=== PATIENT | male | born 1955 | race Caucasian/White ===

== ENCOUNTER 2016-05-16 14:56 | Inpatient (IN) | payer MEDICARE, OTHER ==
--- NOTE | ~2016-05-16 | DS ---
Discharge Summary [facility] [address] [place]. [address] NAME: GABRIELLE PARISI JR : 53 STATUS : DIS IN PAT#: [id number] AGE: 60 ADM/REG DATE : 05/16/16 MR#: [id number] REPORT SERV DATE: 05/19/16 DICTATED BY: FRANCES SHULTZ DATE: 05/19/16 REPORT STATUS : Draft TRANSCRIBED BY: MODAugie DATE: 05/19/16 ADMISSION DATE: 05/16/2016 DISCHARGE DATE: 05/19/2016 INDICATION FOR ADMISSION: Mild confusion, atrial fibrillation with rapid ventricular response. DISCHARGE DIAGNOSES: 1. Altered mental status, on dialysis, no evidence of infection, likely hypoxemia improved after dialysis. 2. Atrial fibrillation with rapid ventricular response, converted to normal sinus rhythm with additional Cardizem. 3. End-stage renal disease, dialyzing Thursday, Thursday, and Thursday at [facility] by left forearm AV fistula. 4. Pulmonary hypertension. 5. History of atrial fibrillation. 6. Hypertension. 7. Obstructive sleep apnea. 8. Hyperkalemia. 9. Chronic debility. 10.Torticollis. 11.Congestive heart failure. 12.Seizure disorder. 13.Moderate diastolic dysfunction. 14.Stable coronary artery disease with mild nonobstructive CAD per angiogram 2008. HOSPITAL COURSE: Mr. Parisi is a 60-year-old male, who was transferred prior to completion of dialysis due to lethargy. He was evaluated in the emergency room and no obvious source was found for his mental status changes. Blood gas was not performed. Blood cultures were obtained and he was dosed with Rocephin x1. The cultures were negative. He was noted to have a potassium of 6 and was resumed on dialysis on 05/17/2016. He was at his baseline when repeat dialysis was performed. His dry weight was challenged. He developed atrial fibrillation with rapid ventricular response. He denied any chest pain. The patient was seen by Cardiology and was dosed with Cardizem and he converted to normal sinus rhythm. He remained at his baseline for the remainder of the hospitalization. Cardiology did not feel he was a candidate for anticoagulation due to history of subdural hematoma in the past. He was noted to have an ejection fraction of 60% on echocardiogram. He had previously had nonobstructive coronary artery disease by cardiac cath in 2008. There was no troponin elevation, therefore no repeat catheterization was performed. He was felt stable for release on 05/19/2016. DISCHARGE MEDICATIONS: Allopurinol 100 mg at bedtime; Norvasc 5 mg p.o. twice daily; amiodarone 100 mg q.a.m.; diltiazem extended release 120 mg p.o. q.a.m.; Keppra 500 mg p.o. twice daily; multivitamin 1 p.o. daily; Trileptal 150 mg at bedtime; Nexium 40 mg at bedtime; Dilantin 200 mg at bedtime; Mirapex 0.75 mg p.o. at bedtime; Zoloft 50 mg daily; Renvela 800 mg twice daily with meals; Tylenol 325 mg q.6h. p.r.n.; Zofran 4 mg p.o. twice Discharge Summary [address] [address] NAME: GABRIELLE PARISI : 53 STATUS : DIS IN PAT#: [id number] AGE: 60 ADM/REG DATE : 05/16/16 MR#: [id number] REPORT SERV DATE: 05/19/16 DICTATED BY: FRANCES SHULTZ DATE: 05/19/16 REPORT STATUS : Draft TRANSCRIBED BY: LELO DATE: 05/19/16 daily; Sensipar 30 mg p.o. on Thursday, Thursday, Thursday, Thursday, and Thursday; SPS suspension 15 g p.o. q. Thursday; and PhosLo 667 mg p.o. twice daily. ACTIVITY: Activity will be per care home/assisted living. DIET: Diet will be 1500 cc renal diet. FOLLOWUP: Will be on dialysis as scheduled at [facility]. CHANCE/BELKISL Frances Shultz M.D. / [id number] CC: Thelma Miller M.D.
--- NOTE | ~2016-05-16 | CN ---
Consultation Report [facility] [address] [place]. [address] NAME: GABRIELLE VOGT JR : 53 STATUS : ADM IN PAT#: [id number] AGE: 60 ADM/REG DATE : 05/16/16 MR#: [id number] REPORT SERV DATE: 05/17/16 DICTATED BY: DRE FERGUSON DATE: 05/17/16 REPORT STATUS : Draft TRANSCRIBED BY: LELO DATE: 05/17/16 CARDIOLOGY CONSULT DATE OF CONSULTATION: REFERRING PHYSICIAN: Alex physician assistant professor surgical technology on Nephrology service. REFERRING REASON: Atrial fibrillation with RVR. HISTORY OF PRESENT ILLNESS: This is a pleasant 60-year-old white gentleman with complex past medical history, who has been admitted yesterday for mental status changes during hemodialysis. He is well known to Dr. Yvon Jarquin from [facility]. The patient has a history of paroxysmal atrial fibrillation and history of atrial flutter in the past. He is being well managed with low dose of p.o. amiodarone and Cardizem. He was not felt to be a good candidate for anticoagulation by Dr. Jarquin due to the recurrent subdural hematoma both chronic and subacute, the most recent one has been documented in the fall of 2016. The patient has poor mobility, occasionally walks with a walker. He resides in long term. He denied any recent chest pain or palpitations. He had some confusion during hemodialysis and was admitted last night. He was initiated normal sinus rhythm but later he went into atrial fibrillation with RVR up to 130 beats per minute. He was started on Cardizem drip and went back to normal sinus rhythm. He is now in sinus rhythm and feels well. Of note, he is also on Keppra and Dilantin for some torticollis and possible seizure disorder. He has some mild nonobstructive CAD with preserved systolic function with EF 60%. The rest of the review of systems is negative. He is a poor historian however. PAST MEDICAL HISTORY: 1. End-stage renal disease, on hemodialysis. 2. Seizure disorder and torticollis on Keppra and Dilantin. 3. Paroxysmal atrial fibrillation with history of atrial flutter, currently normal sinus rhythm. 4. No anticoagulation due to recurrent subdural hematoma per Dr. Jarquin. 5. Hypertension. 6. Obstructive sleep apnea. 7. Mild to moderate pulmonary hypertension. 8. Preserved systolic function with EF 60% in 2013 and 2014 with some moderate diastolic dysfunction and mild to moderate pulmonary hypertension with mild left atrial enlargement. 9. Stable coronary artery disease with mild nonobstructive CAD per arteriogram in 2008. SOCIAL HISTORY: The patient is . He resides in assisted living. He walks with a walker. He has a remote history of smoking. He denies drinking alcohol or using street drugs. Consultation Report [address] [place]. [address] NAME: GABRIELLE VOGT JR : 53 STATUS : ADM [facility]#: [id number] AGE: 60 ADM/REG DATE : 05/16/16 MR#: [id number] REPORT SERV DATE: 05/17/16 DICTATED BY: DRE FERGUSON DATE: 05/17/16 REPORT STATUS : Draft TRANSCRIBED BY: LELO DATE: 05/17/16 FAMILY HISTORY: Negative for sudden cardiac or premature coronary artery disease in the family. HOME MEDICATIONS: Keppra 500 mg twice a day; Prilosec 40 mg once a day; Zofran p.r.n.; Trileptal 150 mg at bedtime; Renvela 800 mg before meals; allopurinol 100 mg once a day; amiodarone 100 mg once a day; Norvasc 5 mg twice a day; Sensipar 30 mg every other day; and Cardizem CD 120 mg once a day. PHYSICAL EXAMINATION: GENERAL: Elderly chronically ill-looking gentleman, in no acute distress. Able to lie flat. HEENT: Pupils reactive to light and accommodation. Moist mucosa membrane. NECK: No JVD. Normal carotid upstroke. No carotid bruits. VITAL SIGNS: Blood pressure 149/92, heart rate 56, regular. LUNGS: Decreased breath sounds bibasilarly, but no crackles. SKIN: There is some chronic discoloration of the left upper extremity which is dark, brown with some possible old bruising and hyperpigmentation over dialysis fistula. There is also some hyperpigmentation of both lower extremities with decreased pedal pulses bilaterally. COR: Normal S1, S2. No S3 or S4. No significant rub or murmurs. ABDOMEN: Soft, nontender, nondistended. EXTREMITIES: No edema. MUSCULOSKELETAL: No kyphosis. NEUROLOGIC/PSYCHIATRIC: Alert and oriented. Nonfocal. DATA: CBC remarkable for hemoglobin 11.5 and thrombocytopenia initially 79,000 improving to 85,000. Electrolytes initially potassium 6 and creatinine 8.5 with BUN 19 now after dialysis improved to 4.8 creatinine. Chest x-ray some venous congestion and borderline cardiac silhouette, this is prior dialysis. Electrocardiogram initially in normal sinus rhythm at 59 beats per minute. No acute ST-T changes. Later he had atrial fibrillation with rapid ventricular response up to 136 beats per minute, now he is back in normal sinus rhythm. ASSESSMENT AND PLAN: 1. Paroxysmal atrial fibrillation, currently in normal sinus rhythm. 2. Mental status changes during hemodialysis of unclear etiology. 3. History of documented subdural hematoma, no anticoagulation. 4. End-stage renal disease, on hemodialysis. Under this picture, the patient is now hemodynamically stable. He converted back to normal sinus rhythm. He was not felt to be a good candidate for anticoagulation for the above reasons. He is not oriented to person and place. I would definitely restart his home dose of Cardizem and continue low dose of amiodarone. There are no significant pauses. There are no signs of fluid overload on physical exam. Thank you very much for the consult. Consultation Report [address] [place]. [address] NAME: GABRIELLE VOGT JR : 53 STATUS : ADM [facility]#: [id number] AGE: 60 ADM/REG DATE : 05/16/16 MR#: [id number] REPORT SERV DATE: 05/17/16 DICTATED BY: DRE FERGUSON DATE: 05/17/16 REPORT STATUS : Draft TRANSCRIBED BY: LELO DATE: 05/17/16 TITA/LELO Dre Ferguson M.D. / [id number] CC: Wilman Garcia M.D.
--- NOTE | ~2016-05-16 | CN ---
Consultation Report [facility] [address] [place]. [address] NAME: GABRIELLE VOGT JR : 53 STATUS : ADM [facility]#: [id number] AGE: 60 ADM/REG DATE : 05/16/16 MR#: [id number] REPORT SERV DATE: 05/17/16 DICTATED BY: MARK VELASCO DATE: 05/16/16 REPORT STATUS : Draft TRANSCRIBED BY: LELO DATE: 05/16/16 NEPHROLOGY CONSULT NOTE DATE OF CONSULTATION: REASON FOR ADMISSION: Confusion. HISTORY OF PRESENT ILLNESS: The patient is a 60-year-old gentleman who reportedly went to dialysis, asked to be taken off early, was found to be somewhat lethargic, did not finish his dialysis treatment. He was subsequently transferred to [facility] Emergency Department. No obvious source was found. The patient was given some Rocephin in the ER. His potassium was found to be 6. The patient was sent to hemodialysis and subsequently being admitted for further evaluation and care. PAST MEDICAL HISTORY: Significant for end-stage renal disease with AV fistula, hypertension, obstructive sleep apnea, tobacco use, pulmonary hypertension, atrial fibrillation on amiodarone, but no anticoagulation, torticollis, and debilitated. He lives in an assisted facility. FAMILY HISTORY: No known renal disease. SOCIAL HISTORY: Positive for tobacco use, but no reported alcohol or drug use and abuse. MEDICATION: List consists of Tylenol, allopurinol, amiodarone, amlodipine, PhosLo, Sensipar, diltiazem, Keppra, omeprazole, Zofran, sevelamer, Dilantin, was on a dialysis flow sheet medication list. REVIEW OF SYSTEMS: Difficult to obtain due the patient's current situation. PHYSICAL EXAMINATION: GENERAL: On examination, he was seen in his hospital room. He was arousable, but somewhat lethargic. Presently answer questions very well, is a poor historian. I have seen him before and he does seem to be a little less responsive than his baseline. HEENT: Head is atraumatic, normocephalic. He is a well-developed, elderly gentleman. CARDIOVASCULAR SYSTEM: Regular rate and rhythm. RESPIRATORY SYSTEM: Clear to auscultation. Nonlabored. ABDOMEN: Soft, somewhat protuberant. EXTREMITIES: No clubbing or cyanosis. Does have 1+ peripheral edema. PSYCH: As described above. LABORATORY DATA: Sodium 142, potassium 6, chloride 102, CO2 of 26, BUN 90, creatinine 8.5, glucose 81. Lactic acid 0.9. Consultation Report [facility] [id number] [place]. [address] NAME: GABRIELLE VOGT JR : 53 STATUS : ADM IN PAT#: [id number] AGE: 60 ADM/REG DATE : 05/16/16 MR#: [id number] REPORT SERV DATE: 05/17/16 DICTATED BY: MARK VELASCO DATE: 05/16/16 REPORT STATUS : Draft TRANSCRIBED BY: LELO DATE: 05/16/16 IMPRESSION AND PLAN: This is a gentleman with mild confusion with negative workup from the ER. Given Rocephin. Blood cultures are pending. We will resume home medications. History of Dilantin is listed on his medication sheet from the dialysis unit. We will check a Dilantin level. We will try and resume his other home medications as tolerated. We will make further recommendation as needed. YOGESH/LELO Mark Velasco M.D. / [id number] CC: Mark Velasco M.D.
[2016-05-16 14:19] LABS: BASOPHILS 0.2 %; BASOPHILS ABSOLUTE 0.01 10/3/uL (0.0-0.16); EOSINOPHILS 2.7 %; EOSINOPHILS ABSOLUTE 0.16 10/3/uL (0.0-0.53); HEMATOCRIT 34.6 % (40.0-51.0); HEMOGLOBIN 11.5 g/dL (13.6-17.8); IMMATURE GRANULOCYTES 0.3 %; IMMATURE GRANULOCYTES ABSOLUTE 0.02 10/3/uL (0.0-0.11); LYMPHOCYTES ABSOLUTE 1.31 10/3/uL (0.67-4.30); MEAN CORPUS HGB CONC 33.2 g/dL (32.0-36.0); MEAN CORPUSCULAR HEMOGLOB 33.6 pg (26.0-34.0); MEAN CORPUSCULAR VOLUME 101.2 fL (80-100); MEAN PLATELET VOLUME 10.3 fL (9.2-13.0); MONOCYTES 8.4 %; NEUTROPHILS 66.4 %; NEUTROPHILS ABSOLUTE 3.95 10/3/uL (2.02-8.40); PLATELET COUNT 79 10/3/uL (150-400); RBC DISTRIBUTION WIDTH 13.4 % (12.0-16.0); RED CELL COUNT 3.42 10/6/uL (4.7-6.1)
[2016-05-16 14:20] LABS: MANUAL DIFF NO %
[2016-05-16 14:21] LABS: LACTATE 0.9 MMOL/L (0.3-2.4)
[2016-05-16 14:33] LABS: INTERNATIONAL NORMAL RATI 1.2 UNITS (-); PARTIAL THROMBO TIME 31.2 SEC (22.5-37.2)
[2016-05-16 14:34] LABS: PROTIME (NOT ORD) 14.7 SEC (12.0-14.5)
[2016-05-16 14:35] LABS: A/G RATIO 1.2 (0.7-1.9); ALBUMIN 3.5 G/DL (3.5-5.0); CALCIUM, SERUM 8.3 MG/DL (8.5-10.4); CHLORIDE, SERUM 102 MMOL/L (96-112); CO2 (CARBON DIOXIDE) 26 MMOL/L (24-34); GLOBULIN 2.9 G/DL (2.5-4.1); GLUCOSE, SERUM 81 MG/DL (60-99); SGOT(AST) 35 U/L (5-40); SGPT(ALT) 25 U/L (5-65); SODIUM, SERUM 142 MMOL/L (135-148); TOTAL BILIRUBIN 0.5 MG/DL (0-1.2); TOTAL PROTEIN 6.4 G/DL (6.0-8.5)
[2016-05-16 14:36] LABS: ALKALINE PHOSPHATASE 177 U/L (45-117); BUN (BLOOD UREA NITROGEN) 90 MG/DL (6-23); CREATININE 8.54 MG/DL (0.70-1.30); GFR AFRICAN AMERICAN 7 ML/MIN (>=60); GFR NON AFRICAN AMERICAN 6 ML/MIN (>=60)
[2016-05-16 14:37] LABS: PLATELET ESTIMATE DEC (ADEQUATE); RBC MORPHOLOGY NORM (NORMAL)
[~2016-05-16 14:56] MED LIST: ADVIL PO; AMB5 PO; APRES25 PO; AVAP150 PO; CARD120 PO; CARTIA XT180 MG/24 PO; CONSTULOSE PO; CORDARONE PO; COREG12 PO; COREG25 PO; DSS PO; IBU400 PO; JANTOVEN3 MG PO; JANTOVEN5 MG; JANTOVEN6 MG PO; KAYEXUD PO; LOM PO; MEDROLPAK4 PO; MIRALAXPKT PO; MIRAPEX0.75 MG PO; MIRAPEX1.5 MG PO; MIRAPEX250 PO; MULTIVIT/MIN PO; NEPHRO PO; NEXIUM40 PO; NORV10 PO; NORV5 PO; PACERONE200 MG PO; PATANOL OPH; PHOSLO PO; PR25 PO; PRILOSEC40 MG PO; PROVENTSOL INH; RENAL SFTGLS1 MG PO; RENVELA800 MG PO; SENSIPAR30 M1 PO; SENSIPAR60 MG OR; SEVE800T PO; SPS PO; SPS SUSPENSION PO; TRILEP150 PO; TRIPHROCAPS PO; VITC500 PO; Z100 PO; Z300 PO; ZESTRIL30 MG PO; ZOFRAN4 PO
[2016-05-16 15:11] LABS: PROCALCITONIN 0.35 ng/mL (<0.5)
[2016-05-16 21:16] LABS: BASOPHILS 0 %; EOSINOPHILS 3.9 %; EOSINOPHILS ABSOLUTE 0.19 10/3/uL (0.0-0.53); HEMATOCRIT 36.2 % (40.0-51.0); HEMOGLOBIN 12.1 g/dL (13.6-17.8); IMMATURE GRANULOCYTES 0.2 %; IMMATURE GRANULOCYTES ABSOLUTE 0.01 10/3/uL (0.0-0.11); LYMPHOCYTES 16.7 %; LYMPHOCYTES ABSOLUTE 0.82 10/3/uL (0.67-4.30); MANUAL DIFF NO %; MEAN CORPUS HGB CONC 33.4 g/dL (32.0-36.0); MEAN CORPUSCULAR HEMOGLOB 33.3 pg (26.0-34.0); MEAN CORPUSCULAR VOLUME 99.7 fL (80-100); MEAN PLATELET VOLUME 10.3 fL (9.2-13.0); MONOCYTES 12.2 %; NEUTROPHILS ABSOLUTE 3.29 10/3/uL (2.02-8.40); PLATELET COUNT 83 10/3/uL (150-400); RBC DISTRIBUTION WIDTH 13.2 % (12.0-16.0); RED CELL COUNT 3.63 10/6/uL (4.7-6.1); WHITE BLOOD CELLS 4.9 10/3/uL (4.5-10.5)
[2016-05-16 21:25] LABS: ALBUMIN 3.3 G/DL (3.5-5.0); CALCIUM, SERUM 8.5 MG/DL (8.5-10.4); CHLORIDE, SERUM 108 MMOL/L (96-112); CO2 (CARBON DIOXIDE) 29 MMOL/L (24-34); GLOBULIN 3.4 G/DL (2.5-4.1); GLUCOSE, SERUM 73 MG/DL (60-99); SGOT(AST) 35 U/L (5-40); SGPT(ALT) 27 U/L (5-65); SODIUM, SERUM 145 MMOL/L (135-148); TOTAL BILIRUBIN 0.6 MG/DL (0-1.2); TOTAL PROTEIN 6.7 G/DL (6.0-8.5)
[2016-05-16 21:26] LABS: ALKALINE PHOSPHATASE 191 U/L (45-117); BUN (BLOOD UREA NITROGEN) 38 MG/DL (6-23); CREATININE 4.83 MG/DL (0.70-1.30); GFR AFRICAN AMERICAN 14 ML/MIN (>=60); GFR NON AFRICAN AMERICAN 12 ML/MIN (>=60); POTASSIUM, SERUM 4.3 MMOL/L (3.5-5.3)
[2016-05-17 06:06] LABS: BASOPHILS 0.2 %; BASOPHILS ABSOLUTE 0.02 10/3/uL (0.0-0.16); EOSINOPHILS 2.6 %; EOSINOPHILS ABSOLUTE 0.21 10/3/uL (0.0-0.53); HEMATOCRIT 37.3 % (40.0-51.0); HEMOGLOBIN 12.4 g/dL (13.6-17.8); IMMATURE GRANULOCYTES 0.1 %; IMMATURE GRANULOCYTES ABSOLUTE 0.01 10/3/uL (0.0-0.11); LYMPHOCYTES 18.1 %; LYMPHOCYTES ABSOLUTE 1.49 10/3/uL (0.67-4.30); MEAN CORPUS HGB CONC 33.2 g/dL (32.0-36.0); MEAN CORPUSCULAR HEMOGLOB 33.5 pg (26.0-34.0); MEAN CORPUSCULAR VOLUME 100.8 fL (80-100); MEAN PLATELET VOLUME 10.3 fL (9.2-13.0); MONOCYTES ABSOLUTE 0.66 10/3/uL (0.21-1.20); NEUTROPHILS ABSOLUTE 5.84 10/3/uL (2.02-8.40); PLATELET COUNT 102 10/3/uL (150-400); RBC DISTRIBUTION WIDTH 13.2 % (12.0-16.0)
[2016-05-17 06:11] LABS: MANUAL DIFF NO %; WHITE BLOOD CELLS 8.2 10/3/uL (4.5-10.5)
[2016-05-17 06:20] LABS: ALBUMIN 3.3 G/DL (3.5-5.0); ALKALINE PHOSPHATASE 188 U/L (45-117); CALCIUM, SERUM 8.4 MG/DL (8.5-10.4); CHLORIDE, SERUM 106 MMOL/L (96-112); CO2 (CARBON DIOXIDE) 25 MMOL/L (24-34); GFR AFRICAN AMERICAN 12 ML/MIN (>=60); GFR NON AFRICAN AMERICAN 10 ML/MIN (>=60); GLOBULIN 3.3 G/DL (2.5-4.1); GLUCOSE, SERUM 68 MG/DL (60-99); PHOSPHORUS, SERUM 3.6 MG/DL (2.5-4.5); POTASSIUM, SERUM 4.7 MMOL/L (3.5-5.3); SGOT(AST) 32 U/L (5-40); SGPT(ALT) 26 U/L (5-65); SODIUM, SERUM 144 MMOL/L (135-148); TOTAL BILIRUBIN 0.7 MG/DL (0-1.2); TOTAL PROTEIN 6.6 G/DL (6.0-8.5)
[2016-05-17 06:21] LABS: BUN (BLOOD UREA NITROGEN) 43 MG/DL (6-23); CREATININE 5.64 MG/DL (0.70-1.30)
[2016-05-17 06:25] LABS: DILANTIN (PHENYTOIN) 2.2 MCG/ML (10.0-20.0)
[2016-05-17] MEDS ORDERED: NEXIUM40 PO (14:00)
[2016-05-18 05:29] LABS: BASOPHILS 0.2 %; BASOPHILS ABSOLUTE 0.01 10/3/uL (0.0-0.16); EOSINOPHILS 4.1 %; EOSINOPHILS ABSOLUTE 0.25 10/3/uL (0.0-0.53); HEMATOCRIT 34.1 % (40.0-51.0); HEMOGLOBIN 11.2 g/dL (13.6-17.8); IMMATURE GRANULOCYTES 0.2 %; IMMATURE GRANULOCYTES ABSOLUTE 0.01 10/3/uL (0.0-0.11); LYMPHOCYTES 25.5 %; LYMPHOCYTES ABSOLUTE 1.54 10/3/uL (0.67-4.30); MEAN CORPUS HGB CONC 32.8 g/dL (32.0-36.0); MEAN CORPUSCULAR HEMOGLOB 33.5 pg (26.0-34.0); MEAN CORPUSCULAR VOLUME 102.1 fL (80-100); MONOCYTES 14.8 %; MONOCYTES ABSOLUTE 0.89 10/3/uL (0.21-1.20); NEUTROPHILS 55.2 %; NEUTROPHILS ABSOLUTE 3.33 10/3/uL (2.02-8.40); PLATELET COUNT 82 10/3/uL (150-400); RBC DISTRIBUTION WIDTH 13.4 % (12.0-16.0); RED CELL COUNT 3.34 10/6/uL (4.7-6.1)
[2016-05-18 05:35] LABS: MANUAL DIFF NO %
[2016-05-18 05:41] LABS: BUN (BLOOD UREA NITROGEN) 45 MG/DL (6-23); CALCIUM, SERUM 8.4 MG/DL (8.5-10.4); CHLORIDE, SERUM 99 MMOL/L (96-112); CO2 (CARBON DIOXIDE) 29 MMOL/L (24-34); CREATININE 5.46 MG/DL (0.70-1.30); GFR AFRICAN AMERICAN 12 ML/MIN (>=60); GFR NON AFRICAN AMERICAN 10 ML/MIN (>=60); GLUCOSE, SERUM 82 MG/DL (60-99); PHOSPHORUS, SERUM 4.4 MG/DL (2.5-4.5); POTASSIUM, SERUM 4.3 MMOL/L (3.5-5.3); SODIUM, SERUM 140 MMOL/L (135-148)
[2016-05-19 06:23] LABS: BASOPHILS 0.1 %; BASOPHILS ABSOLUTE 0.01 10/3/uL (0.0-0.16); EOSINOPHILS ABSOLUTE 0.27 10/3/uL (0.0-0.53); HEMATOCRIT 33.4 % (40.0-51.0); HEMOGLOBIN 11.1 g/dL (13.6-17.8); IMMATURE GRANULOCYTES 0.1 %; IMMATURE GRANULOCYTES ABSOLUTE 0.01 10/3/uL (0.0-0.11); LYMPHOCYTES 21.2 %; LYMPHOCYTES ABSOLUTE 1.43 10/3/uL (0.67-4.30); MANUAL DIFF NO %; MEAN CORPUS HGB CONC 33.2 g/dL (32.0-36.0); MEAN CORPUSCULAR HEMOGLOB 33.1 pg (26.0-34.0); MEAN CORPUSCULAR VOLUME 99.7 fL (80-100); MEAN PLATELET VOLUME 10.1 fL (9.2-13.0); MONOCYTES 7.9 %; MONOCYTES ABSOLUTE 0.53 10/3/uL (0.21-1.20); NEUTROPHILS 66.7 %; NEUTROPHILS ABSOLUTE 4.48 10/3/uL (2.02-8.40); PLATELET COUNT 90 10/3/uL (150-400); RED CELL COUNT 3.35 10/6/uL (4.7-6.1); WHITE BLOOD CELLS 6.7 10/3/uL (4.5-10.5)
[2016-05-19 06:34] LABS: ALBUMIN 3.2 G/DL (3.5-5.0); CALCIUM, SERUM 8.1 MG/DL (8.5-10.4); CHLORIDE, SERUM 99 MMOL/L (96-112); CO2 (CARBON DIOXIDE) 26 MMOL/L (24-34); GFR AFRICAN AMERICAN 8 ML/MIN (>=60); GFR NON AFRICAN AMERICAN 7 ML/MIN (>=60); GLUCOSE, SERUM 84 MG/DL (60-99); PHOSPHORUS, SERUM 5.1 MG/DL (2.5-4.5); SODIUM, SERUM 138 MMOL/L (135-148)
[2016-05-19 06:44] LABS: BUN (BLOOD UREA NITROGEN) 66 MG/DL (6-23); CREATININE 7.43 MG/DL (0.70-1.30); POTASSIUM, SERUM 5.4 MMOL/L (3.5-5.3)
[2016-05-23] MEDS ORDERED: *UNABLE3 (21:31)
[2016-07-02] MEDS ORDERED: PACERONE100 MG PO (14:21)
[2016-07-02] MEDS ORDERED: CENTRUM PO (14:22)
[2016-07-02] MEDS ORDERED: PHOSLO PO (14:22)
[2016-07-02] MEDS ORDERED: NORV5 PO (14:22)
[2016-07-02] MEDS ORDERED: CARD120 PO (14:23)
[2016-07-02] MEDS ORDERED: KEPPRA500 PO (14:23)
[2016-07-02] MEDS ORDERED: RENVELA800 MG PO (14:23)
[2016-07-02] MEDS ORDERED: ZOFRAN4 PO (14:23)
[2016-07-02] MEDS ORDERED: SENSIPAR30 M1 PO (14:24)
[2016-07-02] MEDS ORDERED: ZOL50 PO (14:24)
[2016-07-02] MEDS ORDERED: MIRAPEX0.75 MG PO (14:25)
[2016-07-02] MEDS ORDERED: [UNRECOGNIZED DRUG - OTHER] PO (14:25)
[2016-07-02] MEDS ORDERED: TRILEP150 PO (14:26)
[2016-07-02] MEDS ORDERED: D100 PO (14:26)
[2016-07-02] MEDS ORDERED: NEXIUM40 PO (14:26)
[2016-07-02] MEDS ORDERED: Z100 PO (14:26)
== END 2016-05-19 14:40 | disposition home or self-care (01) | DRG 308 ==
LOC: ER 14:56 → 4SO 17:36 → 2SO 05-17 05:03
PROVIDERS: Emergency Medicine; Internal Medicine Nephrology; Radiology Nuclear Radiology; Registered Nurse
PROC: 5A1D60Z (ICD-10-PCS; principal; 2016-05-16)
DX: I48.0 Paroxysmal atrial fibrillation (principal); N18.6 End stage renal disease; I13.2 Hypertensive heart and chronic kidney disease with heart failure and with stage 5 chronic kidney disease, or end stage renal disease; I27.2 Other secondary pulmonary hypertension; E87.5 Hyperkalemia; I50.32 Chronic diastolic (congestive) heart failure; R41.82 Altered mental status, unspecified; G47.33 Obstructive sleep apnea (adult) (pediatric); M43.6 Torticollis; G40.909 Epilepsy, unspecified, not intractable, without status epilepticus; I25.10 Atherosclerotic heart disease of native coronary artery without angina pectoris; Z99.2 Dependence on renal dialysis; Z79.01 Long term (current) use of anticoagulants; Z82.49 Family history of ischemic heart disease and other diseases of the circulatory system
CPT/HCPCS: 71010; 80053; 80069; 80185; 81001; 82330; 82962; 83605; 83735; 84145; 85025; 85610; 85730; 87040; 93005; 99285; A9270-GY; G0257

== ENCOUNTER 2016-05-24 01:02 | Inpatient (IN) | payer MEDICARE, OTHER ==
--- NOTE | ~2016-05-24 | DS ---
Discharge Summary [facility] [address] [place]. [address] NAME: GABRIELLE VOGT JR : 53 STATUS : DIS IN PAT#: [id number] AGE: 60 ADM/REG DATE : 05/24/16 MR#: [id number] REPORT SERV DATE: 06/09/16 DICTATED BY: BARRETT LYLE DATE: 06/06/16 REPORT STATUS : Draft TRANSCRIBED BY: LELO DATE: 06/06/16 Data Collection from hospitalization DISCHARGE DIAGNOSES: 1. End-stage renal disease. 2. Altered mental status. 3. Atrial fibrillation. 4. History of seizures. 5. Hypertension. 6. Obstructive sleep apnea. 7. Pulmonary hypertension. 8. Torticollis. 9. Chronic debility. 10.History of subdural hematoma. CONSULTATIONS: 1. Lobito Rendon MD. 2. Alvarado Dallas M.D. PROCEDURES PERFORMED: 1. Left upper extremity fistulogram with percutaneous angioplasty of the left subclavian and innominate vein using a 10 mm balloon on 05/28/2016. 2. Venous Doppler ultrasound of the left upper extremity on 05/26/2016. MEDICATIONS: Zyloprim 100 mg daily; Norvasc 5 mg twice a day - hold for systolic blood pressure less than 110; Cordarone 100 mg daily; PhosLo 667 mg twice a day; Sensipar 30 mg on Sundays, Mondays, Wednesdays, and Fridays; Cardizem 120 mg daily; Keppra 500 mg at bedtime; Dilantin 200 mg at bedtime; Mirapex 0.75 mg at bedtime; Zoloft 50 mg daily; Renvela 800 mg with breakfast and supper; thiamine 100 mg daily; Zofran 4 mg twice a day; and Tylenol 325 mg every six hours as needed. CONDITION AT DISCHARGE: Stable. DISPOSITION: The patient was discharged to [facility] on a renal diet with activities as instructed. He would resume outpatient hemodialysis as scheduled. HOSPITAL COURSE: This is a 60-year-old man who has multiple medical problems including end- stage renal disease and seizure disorder. He had been discharged from the hospital on 05/19/2016 with a similar presentation. At that hospitalization, he had mild confusion. It was felt that he may have some hypoxemia related to atrial fibrillation with rapid ventricular response. As with the dialysis session and correction of the atrial fibrillation with rapid ventricular response, the altered mental status resolved. He never had again and was back to his baseline by the end of the dialysis session. He had been back at the assisted living facility. He said that on prior to this admission when he went to work his puzzles, he got so lethargic that he could not complete it. He went to get up and get in wheelchair and fell. He did have a CT scan of the head in the emergency department that was negative. He does have a history of subdural hematoma in the past. He Discharge Summary [facility] [address] [place]. [address] NAME: GABRIELLE VOGT JR : 53 STATUS : DIS IN PAT#: [id number] AGE: 60 ADM/REG DATE : 05/24/16 MR#: [id number] REPORT SERV DATE: 06/09/16 DICTATED BY: BARRETT LYLE DATE: 06/06/16 REPORT STATUS : Draft TRANSCRIBED BY: LELO DATE: 06/06/16 also said that he had been having problems where his hand shakes to the point where he could not eat. He has these periods of extreme drowsiness. He has obstructive sleep apnea and is supposed to wear a CPAP, but does not. ABG was checked in the emergency department and pCO2 was only 32. He had maintained for his seizures on Dilantin and Keppra, and given all of this, it was felt that he should be admitted for further evaluation and treatment. The patient adamantly denied any loss of consciousness. Upon admission, his CT scan of the head had shown resolution of small bilateral subdural hematomas since August of 2015. Liver function tests were unremarkable. Creatinine level was 3.39. He was seen in consultation by Dr. Jose Rendon regarding encephalopathy. The patient reports having sleeping attacks where at times he feels very drowsy, and at times, he also has right upper extremity shaking. There was a question of polypharmacy versus a metabolic encephalopathy versus possible intractable seizure. Lab studies would be obtained as well as a Dilantin level. We would start the patient on thiamine supplementation and electroencephalogram study was requested as well. Ammonia, TSH, free T4, vitamin B12, and folate levels would be obtained. We would continue Keppra and Dilantin at this time. Thiamine was started. The following day, his only complaint was about the food. He reports that his shaking had improved a bit. T-max was 99.8. The patient was afraid to increase his Dilantin dose as he thought it might make him more sleepy. We would hold off on increasing Dilantin doses at this time. Thiamine was continued. On 05/26/2016, he reported improvement in his right upper extremity tremor. He was less sleepy. He could follow simple and two-step commands. Cephalopathy continued to improve. He remained on thiamine. Venous Doppler ultrasound of the left upper extremity was performed. It revealed some clot in the internal jugular, which appeared acute, it may be responsible for the edema in the face. It was felt that this could be addressed with catheter directed thrombolysis if desired. He was seen in consultation by Dr. Alvarado Dallas. We have been asked to evaluate the left upper extremity edema and evaluate left IJ DVT in the setting of chronic subdural hematoma. The patient had some left forearm and arm swelling in the setting of the fistula and left IJ deep vein thrombosis. He did not think the patient would be a good candidate for anticoagulation because of his previous subdural hematomas. He did not recommend placing IVC filter as the risk of pulmonary embolism was relatively small and clinically significant pulmonary edema was even smaller. He did want to perform a fistulogram to see if we could treat any outflow obstruction. He felt that he may perform a suction thrombectomy of the left internal jugular vein. He would make that decision for what would need to be done as he improved, evaluated by Physical Therapy. The EEG was canceled secondary to improvement of his condition. Mental status had improved significantly. Left upper extremity was edematous. On 05/28/2016, he was taken to the operating room by Dr. Alvarado Dallas where he underwent the above-mentioned procedure. He tolerated this well, and there were no complications. The next day, the left upper extremity was stable. 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 Discharge planning was performed. The patient continued to improve. On 05/30/2016, hemodialysis therapy was performed. He had no new complaints. He was alert and cooperative. Discharge instructions were given. Due to his improved and stable condition, he was discharged to [facility] with the above-stated instructions. Discharge Summary [facility] [address] [place]. [address] NAME: GABRIELLE VOGT JR : 53 STATUS : DIS IN PAT#: [id number] AGE: 60 ADM/REG DATE : 05/24/16 MR#: [id number] REPORT SERV DATE: 06/09/16 DICTATED BY: BARRETT LYLE DATE: 06/06/16 REPORT STATUS : Draft TRANSCRIBED BY: MODL DATE: 06/06/16 Information collected by: Kay Key I submit the above information as my discharge summary. TG/LELO Barrett Lyle M.D. / [id number] CC: Thelma Sargent M.D. Chun C. Huang, MD Sachin V Phade, M.D. [facility]
--- NOTE | ~2016-05-24 | CN ---
Consultation Report [facility] [address] [place]. [address] NAME: GABRIELLE VOGT JR : 53 STATUS : ADM IN [facility]#: [id number] AGE: 60 ADM/REG DATE : 05/24/16 MR#: [id number] REPORT SERV DATE: 05/27/16 DICTATED BY: ALVARADO DALLAS DATE: 05/26/16 REPORT STATUS : Draft TRANSCRIBED BY: MODAugie DATE: 05/26/16 DATE OF CONSULTATION: 05/26/2016 REASON FOR CONSULTATION: 1. Evaluation for left upper extremity edema. 2. Evaluation of left IJ DVT in the setting of a chronic subdural hematoma. BRIEF HISTORY: The patient is a 60-year-old gentleman with past medical history significant for end-stage renal disease, on dialysis via a left radiocephalic fistula; hypertension; obstructive sleep apnea; pulmonary hypertension; seizure disorder; atrial fibrillation; and a chronic subdural hematoma that has been present for about a year. He came to the hospital with mental status changes. His left forearm was noted to be swollen. Duplex demonstrated DVT. I was consulted for evaluation and treatment. The patient denies any other complaints. PAST MEDICAL HISTORY: End-stage renal disease, hypertension, KRYSTAL, pulmonary hypertension, seizure disorder, chronic debility, paroxysmal atrial fibrillation, subdural hematoma. SURGICAL HISTORY: Includes left upper extremity AV fistula with subsequent interventions by Dr. Ohara and Dr. Spencer. SOCIAL HISTORY: He lives in an assisted living facility. He denies tobacco, alcohol, or drug use. FAMILY HISTORY: Unremarkable. ALLERGIES: CONTRAST, ALTHOUGH HE HAS HAD IT BEFORE. MEDICATIONS: Documented on the chart and were reviewed. REVIEW OF SYSTEMS: A complete review of systems was performed and is negative with the exception of the aforementioned findings. PHYSICAL EXAMINATION: VITAL SIGNS: Documented on the chart and were reviewed. GENERAL: The patient is awake, alert, oriented, in no apparent distress. HEAD AND NECK: Revealed no facial asymmetry or swelling. HEART: Regular rate and rhythm. LUNGS: Coarse. ABDOMEN: Soft, nontender, nondistended with nonaneurysmal aorta. His abdomen is overweight. EXTREMITIES: He has a palpable upper extremity pulses without any significant edema or ischemic ulcerations. His left forearm, however, is a little swollen. He has a good thrill within his fistula. Examination of the lower extremities reveals palpable femoral, popliteal, and pedal pulses. He has no significant edema or ischemic ulcerations. Consultation Report [facility] [id number] [place]. [address] NAME: GABRIELLE VOGT JR : 53 STATUS : ADM IN [facility]#: [id number] AGE: 60 ADM/REG DATE : 05/24/16 MR#: [id number] REPORT SERV DATE: 05/27/16 DICTATED BY: ALVARADO DALLAS DATE: 05/26/16 REPORT STATUS : Draft TRANSCRIBED BY: MODL DATE: 05/26/16 NEUROLOGICAL: Grossly nonfocal, although he has had a stroke in the past. MUSCULOSKELETAL: Reveals no flexion contractures. LABORATORY DATA: His laboratory investigations are consistent with his renal failure. His venous duplex shows a left IJ DVT. ASSESSMENT AND PLAN: It looks like Mr. Vogt has left forearm and arm swelling in the setting of a fistula and a left IJ deep vein thrombosis. I do not think that he is a good candidate for anticoagulation because of his previous subdural hematomas. I would not place an IVC filter, as the risk of pulmonary embolism is relatively small and clinically significant pulmonary embolism is even smaller. I will shy away from the off-label use in this situation. I want to perform a fistulogram to see if we can treat any outflow obstruction, I may perform a suction thrombectomy of the left internal jugular vein. We will decide what needs to be done as he improves. MEDICAL RECORD ADMINISTRATOR/MODL Alvarado Dallas M.D. / [id number] CC: Thelma Sargent M.D.
--- NOTE | ~2016-05-24 | HP ---
History And Physical [id number] [place]. [address] NAME: GABRIELLE PARISI JR : 53 STATUS : ADM IN [facility]#: [id number] AGE: 60 ADM/REG DATE : 05/24/16 MR#: [id number] REPORT SERV DATE: 05/24/16 DICTATED BY: DATE: REPORT STATUS : Draft TRANSCRIBED BY: MODL DATE: 05/24/16 DATE OF ADMISSION: 05/24/2016 CHIEF COMPLAINT: Lethargy and altered mental status. HISTORY OF PRESENT ILLNESS: Mr. Parisi is a 60-year-old white male with multiple medical problems including end-stage renal disease and seizure disorder. He was just discharged from the hospital on 05/19/2016 with a similar presentation. At that hospitalization, he had mild confusion. It was felt he may have some hypoxemia related to atrial fibrillation with RVR. As with the dialysis session and correction of the atrial fibrillation with RVR, the altered mental status resolved. He never had it again, was back to baseline by the end of his dialysis session. He has been back at his assisted living facility. He states that when he went to work at , he got so lethargic that he could not complete it, got up to go, get in his wheelchair and fell. He did have a CT of the head in the emergency department that was negative. He does have a history of subdural hematoma in the past. He also states that he has been having problems where his hand shakes to the point where he cannot even eat. He has these periods of extreme drowsiness. He does have obstructive sleep apnea, supposed to wear CPAP, but does not. They did check an ABG in the emergency department and pCO2 was only 32. He has maintained for his seizures on Dilantin and Keppra and given all this, he is going to be admitted for further evaluation. The patient adamantly denies any loss of consciousness. PAST MEDICAL HISTORY: End-stage renal disease, hypertension, obstructive sleep apnea, pulmonary hypertension, seizure disorder, torticollis, chronic debility, paroxysmal atrial fibrillation, and history of subdural hematoma last year. SOCIAL HISTORY: He is at assisted living. No tobacco, alcohol, or illicit drug use. FAMILY MEDICAL HISTORY: No end-stage renal disease. ALLERGIES: IODINATED CONTRAST. MEDICATIONS: Acetaminophen, Zyloprim, amiodarone, amlodipine, PhosLo, Sensipar, Cardizem, Keppra, Zofran, Dilantin, Mirapex, Zoloft, and Renvela. REVIEW OF SYSTEMS: Twelve-point review of systems obtained and negative with the exception of that in the HPI plus the patient describes some back pain and states he is having periodic problems with what sounds like muscle spasms up and down his back. PHYSICAL EXAMINATION: VITAL SIGNS: Temp 98.7, blood pressure 184/80, pulse 81, respiratory rate 18, O2 saturation is 99%. GENERAL: This is a chronically ill-appearing white male. He is awake, alert, and oriented. He answers questions appropriately. He is hard of hearing. HEENT: Normocephalic and atraumatic. Conjunctivae clear. Sclerae are anicteric. Oral History And Physical [address] [address] NAME: GABRIELLE PARISI : 53 STATUS : ADM IN [facility]#: [id number] AGE: 60 ADM/REG DATE : 05/24/16 MR#: [id number] REPORT SERV DATE: 05/24/16 DICTATED BY: DATE: REPORT STATUS : Draft TRANSCRIBED BY: LELO DATE: 05/24/16 mucosa is dry. NECK: I do not see neck vein distention and neck has chronically torticollis. HEART: Rate is regular. No murmur, rub, or gallop. LUNGS: Respirations even and unlabored. Breath sounds clear to auscultation. BACK: Without any tenderness. EXTREMITIES: To the left upper extremity, the fistula arm is quite edematous and I do not see any discharge, no erythema around this AV fistula. Lower extremities: No edema. SKIN: No unusual rashes. PSYCH: Mood and affect, pleasant and appropriate. PERTINENT LABS AND X-RAYS: CT of the head with resolution of small bilateral subdural hematomas since August of 2015. ABG with pH 7.5, pCO2 of 32, pO2 of 97, bicarb of 24. WBCs 5.8, H and H 10 and 32, and platelets 74,000. Sodium 142, potassium 3.9, chloride 103, CO2 31, BUN of 18, creatinine of 3.39, calcium 8.4, magnesium 1.9. LFTs unremarkable. Troponin 0.02. IMPRESSION: 1. Altered mental status/lethargy. 2. Tremors. 3. History of seizure disorder and subdural hematoma. 4. End-stage renal disease. 5. Atrial fibrillation with rapid ventricular response early in the week, now in sinus rhythm. 6. Hypertension. 7. Obstructive sleep apnea, does not wear a continuous positive airway pressure. 8. History of coronary artery disease, status post this is nonobstructive. 9. Chronic debility. PLAN: Admit for close neurologic observation on telemetry and monitor for arrhythmia, monitor for hypoxia. Neuro consult will be placed, question if he is having some kind of breakthrough seizures. Continue usual medicines and further orders and recommendations pending clinical course. OSKAR/LELO JUAN J Nolasco / [id number] CC: Barrett Quintero M.D.
--- NOTE | ~2016-05-24 | OP ---
Record Of Operation [facility] [address] [place]. [address] NAME: GABRIELLE VOGT JR : 53 STATUS : ADM IN PAT#: [id number] AGE: 60 ADM/REG DATE : 05/24/16 MR#: [id number] REPORT SERV DATE: 05/29/16 DICTATED BY: ALVARADO DALLAS DATE: 05/28/16 REPORT STATUS : Draft TRANSCRIBED BY: LELO DATE: 05/28/16 DATE OF PROCEDURE: 05/28/2016 PREOPERATIVE DIAGNOSIS: Left upper extremity edema. POSTOPERATIVE DIAGNOSIS: Left upper extremity edema. PROCEDURE: Left upper extremity fistulogram with percutaneous angioplasty of the left subclavian and innominate veins using a 10 mm balloon. SURGEON: Alvarado Dallas M.D. POWERHOUSE MECHANIC HELPER: None. ANESTHESIA: MAC plus local. INDICATIONS: The patient is a 60-year-old gentleman who has a left radiocephalic fistula in place. He has left arm edema and some swelling in his forearm. Thus, he was consented with consent for a fistulogram with possible intervention. DESCRIPTION OF PROCEDURE: After informed consent was obtained, the patient was taken to the operating room and placed in the supine position on the operating table. Monitored anesthesia was administered. The patient's left upper extremity was prepped and draped in the usual sterile fashion. Ultrasound-guided access was obtained of the AV fistula in an antegrade fashion. 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 There was in-stent stenosis in the left subclavian and innominate vein stents that were previously placed. I placed a 7-Ukrainian sheath and angioplastied the AV fistula. I included the left subclavian vein and the left innominate vein. Imaging obtained afterwards showed a great result. Thus, I withdrew my wire, catheter, and sheath and placed a stitch for hemostasis. The patient tolerated the procedure well without any intraprocedural complications noted. LEEROY/LELO Alvarado Dallas M.D. / [id number] CC: Thelma Sargent M.D. Laly Naik M.D.
--- NOTE | ~2016-05-24 | CN ---
Consultation Report [facility] [address] [place]. [address] NAME: GABRIELLE VOGT JR : 53 STATUS : ADM IN [facility]#: [id number] AGE: 60 ADM/REG DATE : 05/24/16 MR#: [id number] REPORT SERV DATE: 05/24/16 DICTATED BY: DATE: REPORT STATUS : Draft TRANSCRIBED BY: MODL DATE: 05/24/16 NEUROLOGY CONSULTATION DATE OF CONSULTATION: 05/24/2016 REASON FOR CONSULT: Encephalopathy. HISTORY OF PRESENT ILLNESS: This is a 60-year-old male presented to [facility] secondary to episodic encephalopathy with the patient has had recent hospital admission for encephalopathy, apparently improved after hemodialysis and the patient was subsequently transferred back to assisted living. The patient in the assisted living was noted to have episodes of decreased responsiveness, drowsiness with the patient noted to have uncontrolled shaking of his right hand. The patient reports sleeping attacks with the patient at times feel very drowsy and also have times with right upper extremity shaking. The patient does have a history of seizure disorder, baseline, sees Dr. Trinh. Previously, he was placed on Keppra by an unknown physician and subsequently was placed on Dilantin and Trileptal, although patient was not on Trileptal according to his medication. The patient at baseline ambulates with a Rollator walker, as well as wheelchair. Now denies any recent illness, fever, chills, nausea, vomiting, chest pain, shortness of breath, and denies any recent changes in medication. PAST MEDICAL HISTORY: Significant for end-stage renal disease, hemodialysis Thursday, Thursday, and Thursday with the left forearm AV fistula, hypertension, obstructive sleep apnea, history of previous tobacco usage, pulmonary hypertension, atrial fibrillation, although currently not on Coumadin, chronic debility, and torticollis. The patient was also noted to have a history of seizure disorder. ALLERGIES: THE PATIENT REPORTS ALLERGY TO IODINE CONTRAST. SOCIAL HISTORY: The patient apparently lives in assisted living with history of tobacco use, but no illicit or alcohol usage. HOME MEDICATIONS: Otherwise consist of Dilantin, Keppra, Tylenol, allopurinol, amiodarone, Norvasc, calcium, Sensipar, Cardizem, Zofran, Mirapex, Zoloft, and Renvela. REVIEW OF SYSTEMS: Negative except for those mentioned in the HPI. PHYSICAL EXAMINATION: VITAL SIGNS: At the time of evaluation, the patient was noted to have vital signs with T- max of 98.7, heart rates of 60 to 81, respiration of 16 to 20, and blood pressure of 131 to 184 over 74 to 85. GENERALLY: The patient is well developed, well nourished, in no acute distress. CARDIOVASCULAR: Regular rate and rhythm. No carotid bruits were otherwise noted. At the Consultation Report [address] [place]. [address] NAME: GABRIELLE VOGT JR : 53 STATUS : ADM IN PAT#: [id number] AGE: 60 ADM/REG DATE : 05/24/16 MR#: [id number] REPORT SERV DATE: 05/24/16 DICTATED BY: DATE: REPORT STATUS : Draft TRANSCRIBED BY: MODAugie DATE: 05/24/16 time of evaluation, the patient was noted to have abnormal posture likely secondary to torticollis. PULMONARY: Clear to auscultation bilaterally. NEUROLOGICAL: Generally, the patient is alert, oriented to person, place, year, and month. Dysarthria was noted. No significant aphasia was noted. Intact registration, difficulty with recall. Cranial nerves 2 through 12, pupils equal, round, and reactive to light. Dysconjugate gaze was noted with extraocular eye movement was noted to be intact. Blink to threat response was noted at the time of evaluation. Asymmetric facial expression noted at the time of evaluation, but reports symmetrical facial sensation. Tongue mildly deviated to the left with mild asymmetric palatal movement. Mild decreased hearing in bilateral ears. The patient was noted to have muscle atrophy in the right upper and bilateral lower extremity with the patient noted to have edema in the left upper extremity. No resting tremor was otherwise seen at the time of evaluation with the patient 4/5 right upper extremity strength and 3/5 left upper extremity strength and 3/5 bilateral lower extremity strength at the time of evaluation, reports symmetrical sensation with minimal ataxia. At the time of evaluation, gait was not evaluated. The patient at baseline ambulates with a Rollator. Decreased reflexes throughout. Upgoing toe on bilateral plantar reflexes. IMAGING: CT scan of the brain demonstrated generalized atrophy. LABORATORY STUDIES: Demonstrated sodium 142, potassium 3.9, chloride 103, bicarb of 31, BUN of 18, creatinine 3.39, glucose of 78, calcium of 8.4, magnesium of 1.9. Serum Dilantin level on 05/17 was 2.2. White blood cell count of 5.8, hemoglobin of 10.3, hematocrit of 32.7, and platelet count of 74. IMPRESSION: Encephalopathy with the patient apparently noted to have episodes of sleepiness, as well as uncontrolled shaking, question of polypharmacy versus a metabolic encephalopathy versus possible intractable seizure. We will obtain laboratory study and Dilantin level. We will also start the patient on thiamine supplementation and we will obtain electroencephalogram study on 05/26/2016. RECOMMENDATIONS: 1. Dilantin level. 2. Ammonia, TSH, free T4, vitamin B12, and folate with morning labs. 3. We will continue Keppra and Dilantin at this time. 4. We will obtain EEG on 05/26/2016. We will start the patient on thiamine 100 mg p.o. daily. JADEN/LELO Lobito Rendon MD Consultation Report [address] [place]. [address] NAME: GABRIELLE VOGT : 53 STATUS : ADM IN [facility]#: [id number] AGE: 60 ADM/REG DATE : 05/24/16 MR#: [id number] REPORT SERV DATE: 05/24/16 DICTATED BY: DATE: REPORT STATUS : Draft TRANSCRIBED BY: BELKISL DATE: 05/24/16 / [id number] CC: Barrett Quintero M.D.
[~2016-05-24 01:02] MED LIST changes: +*UNABLE3
[2016-05-24] MEDS ORDERED: Z100 PO (11:32)
[2016-05-24] MEDS ORDERED: CARD120 PO (11:33)
[2016-05-24] MEDS ORDERED: NORV5 PO (11:33)
[2016-05-24] MEDS ORDERED: PACERONE100 MG PO (11:33)
[2016-05-24] MEDS ORDERED: MIRAPEX0.75 MG PO (11:34)
[2016-05-24] MEDS ORDERED: KEPPRA500 PO (11:34)
[2016-05-24] MEDS ORDERED: RENVELA800 MG PO (11:35)
[2016-05-24] MEDS ORDERED: D100 PO (11:35)
[2016-05-24] MEDS ORDERED: ZOL50 PO (11:35)
[2016-05-24] MEDS ORDERED: T PO (11:36)
[2016-05-24] MEDS ORDERED: ZOFRAN4 PO (11:36)
[2016-05-24] MEDS ORDERED: SENSIPAR30 M1 PO (11:37)
[2016-05-24] MEDS ORDERED: PHOSLO PO (11:37)
[2016-05-24] MEDS ORDERED: SPS SUSPENSION PO (11:37)
[2016-05-25 07:03] LABS: BASOPHILS 0.2 %; BASOPHILS ABSOLUTE 0.01 10/3/uL (0.0-0.16); EOSINOPHILS 3.5 %; EOSINOPHILS ABSOLUTE 0.17 10/3/uL (0.0-0.53); HEMATOCRIT 29.6 % (40.0-51.0); HEMOGLOBIN 9.5 g/dL (13.6-17.8); IMMATURE GRANULOCYTES 0.2 %; IMMATURE GRANULOCYTES ABSOLUTE 0.01 10/3/uL (0.0-0.11); LYMPHOCYTES ABSOLUTE 1.55 10/3/uL (0.67-4.30); MEAN CORPUS HGB CONC 32.1 g/dL (32.0-36.0); MEAN CORPUSCULAR HEMOGLOB 32.6 pg (26.0-34.0); MEAN CORPUSCULAR VOLUME 101.7 fL (80-100); MONOCYTES ABSOLUTE 0.58 10/3/uL (0.21-1.20); NEUTROPHILS 52.1 %; NEUTROPHILS ABSOLUTE 2.52 10/3/uL (2.02-8.40); PLATELET COUNT 73 10/3/uL (150-400); RBC DISTRIBUTION WIDTH 13.1 % (12.0-16.0); RED CELL COUNT 2.91 10/6/uL (4.7-6.1); WHITE BLOOD CELLS 4.8 10/3/uL (4.5-10.5)
[2016-05-25 07:30] LABS: ALBUMIN 2.8 G/DL (3.5-5.0); CALCIUM, SERUM 8.4 MG/DL (8.5-10.4); CHLORIDE, SERUM 102 MMOL/L (96-112); CO2 (CARBON DIOXIDE) 30 MMOL/L (24-34); DILANTIN (PHENYTOIN) 2.5 MCG/ML (10.0-20.0); FREE T4 0.92 NG/DL (0.76-1.46); GLUCOSE, SERUM 81 MG/DL (60-99); PHOSPHORUS, SERUM 4.6 MG/DL (2.5-4.5); SODIUM, SERUM 142 MMOL/L (135-148); ULTRASENSITIVE TSH 0.308 MCIU/ML (0.358-3.740)
[2016-05-25 07:31] LABS: BUN (BLOOD UREA NITROGEN) 55 MG/DL (6-23); CREATININE 6.12 MG/DL (0.70-1.30); FOLATE 11.6 NG/ML (>5.2); GFR AFRICAN AMERICAN 10 ML/MIN (>=60); GFR NON AFRICAN AMERICAN 9 ML/MIN (>=60); POTASSIUM, SERUM 4.7 MMOL/L (3.5-5.3)
[2016-05-25 07:44] LABS: MANUAL DIFF NO %
[2016-05-25 07:59] LABS: MACROCYTES 1+ (5-10/OIF) (0-5/OIF); PLATELET ESTIMATE DEC (ADEQUATE)
[2016-05-26 17:58] LABS: ALBUMIN 2.8 G/DL (3.5-5.0); BUN (BLOOD UREA NITROGEN) 82 MG/DL (6-23); CALCIUM, SERUM 7.6 MG/DL (8.5-10.4); CHLORIDE, SERUM 100 MMOL/L (96-112); CO2 (CARBON DIOXIDE) 24 MMOL/L (24-34); CREATININE 7.57 MG/DL (0.70-1.30); GFR AFRICAN AMERICAN 8 ML/MIN (>=60); GFR NON AFRICAN AMERICAN 7 ML/MIN (>=60); GLUCOSE, SERUM 96 MG/DL (60-99); PHOSPHORUS, SERUM 3.6 MG/DL (2.5-4.5); POTASSIUM, SERUM 5.9 MMOL/L (3.5-5.3); SODIUM, SERUM 138 MMOL/L (135-148)
[2016-05-26 21:16] LABS: BASOPHILS 0.2 %; BASOPHILS ABSOLUTE 0.01 10/3/uL (0.0-0.16); EOSINOPHILS 3.1 %; EOSINOPHILS ABSOLUTE 0.17 10/3/uL (0.0-0.53); HEMATOCRIT 26.8 % (40.0-51.0); HEMOGLOBIN 9.2 g/dL (13.6-17.8); LYMPHOCYTES 23.8 %; LYMPHOCYTES ABSOLUTE 1.32 10/3/uL (0.67-4.30); MEAN CORPUSCULAR HEMOGLOB 33.6 pg (26.0-34.0); MEAN PLATELET VOLUME 10.6 fL (9.2-13.0); MONOCYTES 8.3 %; MONOCYTES ABSOLUTE 0.46 10/3/uL (0.21-1.20); NEUTROPHILS 64.6 %; NEUTROPHILS ABSOLUTE 3.58 10/3/uL (2.02-8.40); PLATELET COUNT 67 10/3/uL (150-400); RBC DISTRIBUTION WIDTH 13.2 % (12.0-16.0); RED CELL COUNT 2.74 10/6/uL (4.7-6.1); WHITE BLOOD CELLS 5.5 10/3/uL (4.5-10.5)
[2016-05-26 21:22] LABS: MANUAL DIFF NO %; MEAN CORPUS HGB CONC 34.3 g/dL (32.0-36.0); MEAN CORPUSCULAR VOLUME 97.8 fL (80-100)
[2016-05-26 21:34] LABS: PLATELET ESTIMATE DEC (ADEQUATE)
[2016-05-26 21:36] LABS: RBC MORPHOLOGY NORM (NORMAL)
[2016-05-27 04:50] LABS: BASOPHILS 0.2 %; BASOPHILS ABSOLUTE 0.01 10/3/uL (0.0-0.16); EOSINOPHILS ABSOLUTE 0.15 10/3/uL (0.0-0.53); HEMOGLOBIN 9.9 g/dL (13.6-17.8); IMMATURE GRANULOCYTES 0.2 %; IMMATURE GRANULOCYTES ABSOLUTE 0.01 10/3/uL (0.0-0.11); LYMPHOCYTES 29.4 %; LYMPHOCYTES ABSOLUTE 1.46 10/3/uL (0.67-4.30); MEAN CORPUS HGB CONC 33.6 g/dL (32.0-36.0); MEAN CORPUSCULAR HEMOGLOB 33.3 pg (26.0-34.0); MEAN CORPUSCULAR VOLUME 99.3 fL (80-100); MEAN PLATELET VOLUME 10.1 fL (9.2-13.0); MONOCYTES 9.7 %; MONOCYTES ABSOLUTE 0.48 10/3/uL (0.21-1.20); NEUTROPHILS 57.5 %; NEUTROPHILS ABSOLUTE 2.85 10/3/uL (2.02-8.40); PLATELET COUNT 76 10/3/uL (150-400); RED CELL COUNT 2.97 10/6/uL (4.7-6.1)
[2016-05-27 04:52] LABS: HEMATOCRIT 29.5 % (40.0-51.0); MANUAL DIFF NO %
[2016-05-27 04:56] LABS: INTERNATIONAL NORMAL RATI 1.2 UNITS (-); PROTIME (NOT ORD) 15.1 SEC (12.0-14.5)
[2016-05-27 05:07] LABS: ALBUMIN 2.8 G/DL (3.5-5.0); CALCIUM, SERUM 8.3 MG/DL (8.5-10.4); CHLORIDE, SERUM 102 MMOL/L (96-112); CO2 (CARBON DIOXIDE) 28 MMOL/L (24-34); GFR AFRICAN AMERICAN 13 ML/MIN (>=60); GFR NON AFRICAN AMERICAN 11 ML/MIN (>=60); GLUCOSE, SERUM 80 MG/DL (60-99); PHOSPHORUS, SERUM 3.4 MG/DL (2.5-4.5); POTASSIUM, SERUM 4.9 MMOL/L (3.5-5.3); SODIUM, SERUM 140 MMOL/L (135-148)
[2016-05-27 05:08] LABS: BUN (BLOOD UREA NITROGEN) 41 MG/DL (6-23); CREATININE 5.11 MG/DL (0.70-1.30)
[2016-05-27 05:21] LABS: PLATELET ESTIMATE DEC (ADEQUATE); RBC MORPHOLOGY NORM (NORMAL)
[2016-05-28 17:30] LABS: ALBUMIN 2.7 G/DL (3.5-5.0); CALCIUM, SERUM 8.5 MG/DL (8.5-10.4); CHLORIDE, SERUM 100 MMOL/L (96-112); CO2 (CARBON DIOXIDE) 26 MMOL/L (24-34); PHOSPHORUS, SERUM 4.3 MG/DL (2.5-4.5); SODIUM, SERUM 135 MMOL/L (135-148)
[2016-05-28 17:38] LABS: BUN (BLOOD UREA NITROGEN) 67 MG/DL (6-23); CREATININE 7.65 MG/DL (0.70-1.30); GFR AFRICAN AMERICAN 8 ML/MIN (>=60); GFR NON AFRICAN AMERICAN 7 ML/MIN (>=60); GLUCOSE, SERUM 109 MG/DL (60-99); POTASSIUM, SERUM 6.1 MMOL/L (3.5-5.3)
[2016-05-28 17:39] LABS: BASOPHILS 0.2 %; BASOPHILS ABSOLUTE 0.01 10/3/uL (0.0-0.16); EOSINOPHILS 3.1 %; EOSINOPHILS ABSOLUTE 0.14 10/3/uL (0.0-0.53); IMMATURE GRANULOCYTES 0.2 %; IMMATURE GRANULOCYTES ABSOLUTE 0.01 10/3/uL (0.0-0.11); LYMPHOCYTES 24.7 %; LYMPHOCYTES ABSOLUTE 1.12 10/3/uL (0.67-4.30); MEAN CORPUS HGB CONC 34.5 g/dL (32.0-36.0); MEAN CORPUSCULAR HEMOGLOB 34.1 pg (26.0-34.0); MEAN CORPUSCULAR VOLUME 98.9 fL (80-100); MEAN PLATELET VOLUME 10.5 fL (9.2-13.0); MONOCYTES 11.2 %; MONOCYTES ABSOLUTE 0.51 10/3/uL (0.21-1.20); NEUTROPHILS 60.6 %; NEUTROPHILS ABSOLUTE 2.75 10/3/uL (2.02-8.40); PLATELET COUNT 71 10/3/uL (150-400); RBC DISTRIBUTION WIDTH 13.2 % (12.0-16.0); RED CELL COUNT 2.64 10/6/uL (4.7-6.1); WHITE BLOOD CELLS 4.5 10/3/uL (4.5-10.5)
[2016-05-28 17:50] LABS: HEMATOCRIT 26.1 % (40.0-51.0)
[2016-05-28 17:51] LABS: MANUAL DIFF NO %
[2016-05-28 18:10] LABS: PLATELET ESTIMATE DEC (ADEQUATE); RBC MORPHOLOGY NORM (NORMAL)
[2016-05-29 06:42] LABS: BASOPHILS 0.2 %; BASOPHILS ABSOLUTE 0.01 10/3/uL (0.0-0.16); EOSINOPHILS 2.8 %; EOSINOPHILS ABSOLUTE 0.13 10/3/uL (0.0-0.53); HEMATOCRIT 28.2 % (40.0-51.0); HEMOGLOBIN 9.3 g/dL (13.6-17.8); LYMPHOCYTES 25.8 %; LYMPHOCYTES ABSOLUTE 1.22 10/3/uL (0.67-4.30); MEAN CORPUSCULAR HEMOGLOB 33.2 pg (26.0-34.0); MEAN CORPUSCULAR VOLUME 100.7 fL (80-100); MEAN PLATELET VOLUME 10.1 fL (9.2-13.0); MONOCYTES 9.7 %; MONOCYTES ABSOLUTE 0.46 10/3/uL (0.21-1.20); NEUTROPHILS 61.5 %; PLATELET COUNT 77 10/3/uL (150-400); RBC DISTRIBUTION WIDTH 12.9 % (12.0-16.0); WHITE BLOOD CELLS 4.7 10/3/uL (4.5-10.5)
[2016-05-29 06:43] LABS: ALBUMIN 2.7 G/DL (3.5-5.0); CALCIUM, SERUM 8.3 MG/DL (8.5-10.4); CHLORIDE, SERUM 102 MMOL/L (96-112); CO2 (CARBON DIOXIDE) 28 MMOL/L (24-34); GFR AFRICAN AMERICAN 14 ML/MIN (>=60); GFR NON AFRICAN AMERICAN 12 ML/MIN (>=60); GLUCOSE, SERUM 91 MG/DL (60-99); PHOSPHORUS, SERUM 3.7 MG/DL (2.5-4.5); POTASSIUM, SERUM 4.9 MMOL/L (3.5-5.3); SODIUM, SERUM 139 MMOL/L (135-148)
[2016-05-29 06:44] LABS: MANUAL DIFF NO %
[2016-05-29 06:46] LABS: BUN (BLOOD UREA NITROGEN) 36 MG/DL (6-23); CREATININE 4.92 MG/DL (0.70-1.30)
[2016-05-29 07:42] LABS: PLATELET ESTIMATE DEC (ADEQUATE)
[2016-05-29 07:43] LABS: MACROCYTES 1+ (5-10/OIF) (0-5/OIF)
[2016-05-30 04:55] LABS: BASOPHILS 0.4 %; BASOPHILS ABSOLUTE 0.02 10/3/uL (0.0-0.16); EOSINOPHILS 2.9 %; EOSINOPHILS ABSOLUTE 0.15 10/3/uL (0.0-0.53); HEMATOCRIT 27.9 % (40.0-51.0); HEMOGLOBIN 9.2 g/dL (13.6-17.8); IMMATURE GRANULOCYTES 0.2 %; IMMATURE GRANULOCYTES ABSOLUTE 0.01 10/3/uL (0.0-0.11); LYMPHOCYTES 25.6 %; LYMPHOCYTES ABSOLUTE 1.34 10/3/uL (0.67-4.30); MEAN CORPUSCULAR HEMOGLOB 33.1 pg (26.0-34.0); MEAN CORPUSCULAR VOLUME 100.4 fL (80-100); MONOCYTES 8.6 %; MONOCYTES ABSOLUTE 0.45 10/3/uL (0.21-1.20); NEUTROPHILS 62.3 %; NEUTROPHILS ABSOLUTE 3.26 10/3/uL (2.02-8.40); PLATELET COUNT 78 10/3/uL (150-400); RBC DISTRIBUTION WIDTH 13.1 % (12.0-16.0); RED CELL COUNT 2.78 10/6/uL (4.7-6.1); WHITE BLOOD CELLS 5.2 10/3/uL (4.5-10.5)
[2016-05-30 04:57] LABS: MANUAL DIFF NO %
[2016-05-30 05:03] LABS: CHLORIDE, SERUM 102 MMOL/L (96-112); CO2 (CARBON DIOXIDE) 28 MMOL/L (24-34); GFR AFRICAN AMERICAN 10 ML/MIN (>=60); GFR NON AFRICAN AMERICAN 8 ML/MIN (>=60); GLUCOSE, SERUM 78 MG/DL (60-99); PHOSPHORUS, SERUM 4.3 MG/DL (2.5-4.5); POTASSIUM, SERUM 5.8 MMOL/L (3.5-5.3); SODIUM, SERUM 142 MMOL/L (135-148)
[2016-05-30 05:06] LABS: BUN (BLOOD UREA NITROGEN) 58 MG/DL (6-23); CREATININE 6.59 MG/DL (0.70-1.30)
[2016-07-02] MEDS ORDERED: PACERONE100 MG PO (14:21)
[2016-07-02] MEDS ORDERED: NORV5 PO (14:22)
[2016-07-02] MEDS ORDERED: CENTRUM PO (14:22)
[2016-07-02] MEDS ORDERED: PHOSLO PO (14:22)
[2016-07-02] MEDS ORDERED: RENVELA800 MG PO (14:23)
[2016-07-02] MEDS ORDERED: ZOFRAN4 PO (14:23)
[2016-07-02] MEDS ORDERED: KEPPRA500 PO (14:23)
[2016-07-02] MEDS ORDERED: CARD120 PO (14:23)
[2016-07-02] MEDS ORDERED: SENSIPAR30 M1 PO (14:24)
[2016-07-02] MEDS ORDERED: ZOL50 PO (14:24)
[2016-07-02] MEDS ORDERED: MIRAPEX0.75 MG PO (14:25)
[2016-07-02] MEDS ORDERED: [UNRECOGNIZED DRUG - OTHER] PO (14:25)
[2016-07-02] MEDS ORDERED: Z100 PO (14:26)
[2016-07-02] MEDS ORDERED: D100 PO (14:26)
[2016-07-02] MEDS ORDERED: TRILEP150 PO (14:26)
[2016-07-02] MEDS ORDERED: NEXIUM40 PO (14:26)
== END 2016-05-30 16:28 | DRG 252 ==
LOC: 2SO 01:02
PROVIDERS: Internal Medicine Nephrology; Nurse Practitioner; Registered Nurse; Surgery
PROC: 5A1D60Z (ICD-10-PCS; 2016-05-26)
PROC: 03743ZZ Dilation of Left Subclavian Artery, Percutaneous Approach (ICD-10-PCS; principal; 2016-05-28 10:45)
PROC: B51W1ZZ Fluoroscopy of Dialysis Shunt/Fistula using Low Osmolar Contrast (ICD-10-PCS; 2016-05-28 10:45)
DX: T82.868A Thrombosis due to vascular prosthetic devices, implants and grafts, initial encounter (principal); G93.41 Metabolic encephalopathy; I82.622 Acute embolism and thrombosis of deep veins of left upper extremity; I27.2 Other secondary pulmonary hypertension; N18.6 End stage renal disease; M41.9 Scoliosis, unspecified; I50.9 Heart failure, unspecified; I13.0 Hypertensive heart and chronic kidney disease with heart failure and stage 1 through stage 4 chronic kidney disease, or unspecified chronic kidney disease; G40.909 Epilepsy, unspecified, not intractable, without status epilepticus; I48.0 Paroxysmal atrial fibrillation; G47.33 Obstructive sleep apnea (adult) (pediatric); I25.10 Atherosclerotic heart disease of native coronary artery without angina pectoris; Y82.8 Other medical devices associated with adverse incidents; R25.1 Tremor, unspecified; R53.81 Other malaise; D64.9 Anemia, unspecified; Z99.2 Dependence on renal dialysis; S06.5X0D Traumatic subdural hemorrhage without loss of consciousness, subsequent encounter; Z79.01 Long term (current) use of anticoagulants; Z85.820 Personal history of malignant melanoma of skin; Z91.19 Patient's noncompliance with other medical treatment and regimen; Z88.8 Allergy status to other drugs, medicaments and biological substances
CPT/HCPCS: 36600; 36902; 70450; 71010; 80048; 80069; 80076; 80185; 80307; 82140; 82607; 82746; 82805; 83735; 84439; 84443; 84484; 85025; 85610; 85730; 93005; 93971; 97110-GP; 97162-GP; 97530-GP; 99285; A9270-GY; C1725; C1769; C1894; G0257; G8978-CL-GP; G8979-CJ-GP; J0690; Q9966

== ENCOUNTER 2016-07-02 15:10 | Inpatient (IN) | payer MEDICARE, OTHER ==
--- NOTE | ~2016-07-02 | CN ---
Consultation Report [facility] [address] [place]. [address] NAME: GABRIELLE VOGT JR : 53 STATUS : ADM IN PAT#: [id number] AGE: 60 ADM/REG DATE : 07/02/16 MR#: [id number] REPORT SERV DATE: 07/02/16 DICTATED BY: DATE: REPORT STATUS : Draft TRANSCRIBED BY: MODL DATE: 07/02/16 NEUROLOGY CONSULTATION DATE OF CONSULTATION: 07/02/2016 REASON FOR CONSULT: Possible seizure, encephalopathy. HISTORY OF PRESENT ILLNESS: This is a 60-year-old male with a history of previous seizure disorder, presented to [facility] secondary to altered mental status with the patient was noted to be unresponsive in the dialysis unit. The patient was transferred to [facility] for evaluation and subsequently transferred to [facility] for admission secondary to the patient requiring dialysis. The patient, since the hospital admission, was noted to be confused and lethargic, but was noted to have improved mental status during the dialysis. The patient during the evaluation was also noted to have a low Dilantin level. It is unclear whether or not the patient has been taking his seizure medication. He does have a history of persistent seizure disorder, reportedly seen at [facility] by Dr. Trinh and was placed on Dilantin as well as Trileptal and Keppra. The patient at baseline ambulates with a Rollator walker as well as wheelchair and is residing in assisted living facility. No reports of recent illness were otherwise noted. PAST MEDICAL HISTORY: Significant for end-stage renal disease, on dialysis on Thursday, Thursday, and Thursday as well as history of hypertension, obstructive sleep apnea, history of a previous tobacco usage, pulmonary hypertension, atrial fibrillation, with the patient noted to have torticollis. The patient at baseline ambulates with a Rollator as well as wheelchair with the patient also noted to have a history of seizure disorder, sees Dr. Trinh. Previously was on Keppra, Dilantin as well as Trileptal. Also, the patient's seizure medication was difficult to evaluate. It is unclear whether or not the patient was compliant with the seizure medication. He was noted to have low Dilantin level. ALLERGIES: AT THE CURRENT HOSPITAL EVALUATION, THE PATIENT WAS NOTED TO HAVE ALLERGY TO IODINE CONTRAST. SOCIAL HISTORY: With previous history of tobacco usage and no illicit drug or alcohol usage. REVIEW OF SYSTEMS: Unable to be obtained from the patient secondary to the patient's current mental status. MEDICATIONS: At the time of evaluation the patient's home medication consist of Keppra as well as Dilantin, amiodarone, amlodipine, calcium acetate, multivitamin, diltiazem, Zofran, Renvela, Sensipar, Zoloft, Mirapex, allopurinol, Nexium, and Trileptal. PHYSICAL EXAMINATION: VITAL SIGNS: At time of evaluation, the patient was noted to have vital signs T-max of 97.7, heart rate of 63 to 67, respiration of 14 to 20, and blood pressure of 198 to 209 over 86 to Consultation Report [place] [address] [facility] [place]. [address] NAME: GABRIELLE VOGT JR : 53 STATUS : ADM IN [facility]#: [id number] AGE: 60 ADM/REG DATE : 07/02/16 MR#: [id number] REPORT SERV DATE: 07/02/16 DICTATED BY: DATE: REPORT STATUS : Draft TRANSCRIBED BY: MODAugie DATE: 07/02/16 93. GENERAL: The patient is a well developed, well nourished, in no acute distress. CARDIOVASCULAR: Regular rate and rhythm. No carotid bruits are otherwise auscultated. PULMONARY: Clear to auscultation bilaterally. NEUROLOGICAL EXAMINATION: The patient was alert and oriented to person, place, year, but not to month. Verbal perseverance was noted. The patient was noted to be confused and mildly lethargic and have some difficulties maintaining arousal. The patient was able to follow most of the simple commands, but was noted to have difficulties following complex commands. At the time of evaluation dysarthria was noted. No clear aphasia was noted. At the time of evaluation was noted to have difficulties with recall and registration. Cranial nerves II through XII, the patient was noted to have asymmetrical facial expression. The pupil appeared to be reactive bilaterally, trace blink to threat response at the time of evaluation, with the patient noted to have some horizontal eye movement on oculocephalic maneuver. The patient does demonstrated movement of the bilateral upper extremity with the patient noted to have some weakness moving against gravity in bilateral lower extremity. Deep tendon reflex was otherwise hyperreflexia in bilateral upper extremity, diminished in bilateral lower extremity. Upgoing toe on bilateral plantar reflexes. Coordination and gait were unable to be evaluated at the time of evaluation secondary to the patient's mental status. LABORATORY STUDIES: Demonstrates sodium 143, potassium 4.5, chloride 103, bicarb of 30, BUN of 42, creatinine of 6.61, glucose of 95, calcium of 8.3. Serum Dilantin level of 1.5. Serum ammonia level of 11. BNP of 1800. White blood cell count of 5.3, hemoglobin of 10.1, hematocrit of 32.7, platelet count of 98. CT scan of the brain demonstrated generalized atrophy, but otherwise no acute process. IMPRESSION: 1. Encephalopathy. 2. History of seizures. Concern for possible seizure with postictal event versus hypotensive encephalopathy. The patient apparently was more alert at dialysis per the staff members, but still was noted to be confused, disoriented as well as with the verbal perseverance. The patient on admission was also noted to have a low serum Dilantin level concerning for either inadequate dosage versus medication noncompliance. We will check serum Keppra level. We will discontinue Dilantin and start the patient on trial with Zonegran. We are recommending continue Keppra as well as Trileptal for this at this time. We will also supplement the patient with thiamine 100 mg IV daily. We will obtain EEG study. RECOMMENDATION: 1. Keppra level. 2. EEG. 3. Thiamine 100 mg IV daily. 4. Discontinue Dilantin. Consultation Report [address] [place]. [address] NAME: GABRIELLE VOGT OSMANMARLON : 53 STATUS : ADM IN [facility]#: [id number] AGE: 60 ADM/REG DATE : 07/02/16 MR#: [id number] REPORT SERV DATE: 07/02/16 DICTATED BY: DATE: REPORT STATUS : Draft TRANSCRIBED BY: MODL DATE: 07/02/16 5. Zonegran 300 mg p.o. q.h.s. [facility]/LELO Lobito Rendon MD / [id number] CC: Barrett Quintero M.D.
--- NOTE | ~2016-07-02 | EEG ---
Electroencephalogram [facility] [address] [facility] [place]. [address] NAME: GABRIELLE VOGT JR : 53 STATUS : ADM IN PAT#: [id number] AGE: 60 ADM/REG DATE : 07/02/16 MR#: [id number] REPORT SERV DATE: 07/03/16 DICTATED BY: DATE: REPORT STATUS : Draft TRANSCRIBED BY: MODL DATE: 07/03/16 NEUROLOGY EEG REPORT CLINICAL INDICATION: Encephalopathy. DESCRIPTION: This EEG was performed using 10/20 electrode placement system. During the EEG study, symmetric background activity was noted with predominant occipital rhythm of roughly 6-to-7 hertz. Photic stimulation was performed. No clear driving response was seen. Hyperventilation was not performed secondary to the patient's underlying medical condition. Throughout the EEG, EKG artifact most prominently seen in the left temporal leads was noted during the EEG evaluation. The patient otherwise achieved drowsy stage as well as stage I and II sleep with appropriate sleep spindles and K-complexes. No focal abnormalities, seizure activity, or seizure discharge was otherwise noted. During the EEG evaluation. INTERPRETATION: This EEG study obtained during awake, drowsy as well as stage I and II sleep may be considered within normal limits. No focal abnormalities, seizure activity, or seizure discharge was otherwise noted. Mild generalized slowing was seen during the EEG study. Of note, normal EEG study does not preclude the diagnosis of seizure disorder. Clinical correlation is recommended. [facility]/LELO Lobito Rendon MD / [id number] CC: Barrett Quintero M.D.
--- NOTE | ~2016-07-02 | HP ---
History And Physical [id number] [place]. [address] NAME: GABRIELLE PARISI JR : 53 STATUS : ADM IN [facility]#: [id number] AGE: 60 ADM/REG DATE : 07/02/16 MR#: [id number] REPORT SERV DATE: 07/02/16 DICTATED BY: DATE: REPORT STATUS : Draft TRANSCRIBED BY: MODL DATE: 07/02/16 DATE OF ADMISSION: 07/02/2016 CHIEF COMPLAINT: Altered mental status. HISTORY OF PRESENT ILLNESS: Mr. Parisi is a 60-year-old white male with extensive past medical history including end-stage renal disease, seizure disorder, also subdural hematoma last year who apparently arrived at the Dialysis Clinic today with altered mental status. He was sent to the emergency room for evaluation. The time of this altered mental status is unknown. On evaluation here, the patient is very drowsy, hard to awaken. During my initial exam, he would not wake up, but he did withdraw from noxious stimuli, but further during the stay, he is now trying to sit up. While they try to sit him on the dialysis machine, he is saying some words, but most do not make sense. He had a CT of the head negative and his labs were unremarkable for anything other than those that are consistent with his end-stage renal disease. Given all this, he has been admitted for further evaluation. PAST MEDICAL HISTORY: End-stage renal disease, seizure disorder, torticollis, chronic debility, paroxysmal atrial fibrillation, subdural hematoma, coronary artery disease, pulmonary hypertension, and obstructive sleep apnea. SOCIAL HISTORY: He lives in assisted living. No tobacco, alcohol, or illicit drug use. FAMILY MEDICAL HISTORY: No end-stage renal disease. ALLERGIES: TO IODINATED CONTRAST. MEDICATIONS: Cinacalcet, Zofran, amlodipine, Mirapex, Keppra, allopurinol, acetaminophen, amiodarone, calcium acetate, phenytoin, Zoloft, sevelamer, and diltiazem. REVIEW OF SYSTEMS: Unable to obtain from the patient. PHYSICAL EXAMINATION: VITAL SIGNS: Temp 97.7, blood pressure 198/86, pulse 63, respiratory rate 42, and O2 saturation 100% on 2 liters. GENERAL: This is a chronically ill-appearing white male. I cannot assess orientation. HEENT: Normocephalic and atraumatic. Oral mucosa is dry. Could not get him to open his eyes for eye exam. NECK: Supple. No lymphadenopathy. No neck vein distention. RESPIRATIONS: Even and unlabored with some scattered rhonchi. HEART: Rate regular. No murmur, rub, or gallop. ABDOMEN: Soft and nontender. BACK: Did not examine back as unable to do so. EXTREMITIES: No significant edema. SKIN: He has multiple bruises to legs and changes of peripheral vascular disease to lower extremities. To the left upper arm, he has an AV fistula. Positive thrills and bruits. History And Physical [id number] [facility] [place]. [address] NAME: GABRIELLE PARISI JR : 53 STATUS : ADM IN [facility]#: [id number] AGE: 60 ADM/REG DATE : 07/02/16 MR#: [id number] REPORT SERV DATE: 07/02/16 DICTATED BY: DATE: REPORT STATUS : Draft TRANSCRIBED BY: MODL DATE: 07/02/16 PERTINENT LABS AND X-RAYS: CT of the head negative. Dilantin level of 1.5. Ammonia 11. BNP of 1800. Chest x-ray with some interstitial edema. Lactate 1.3. Sodium 143, potassium 4.5, chloride 103, CO2 of 30, BUN of 42, creatinine of 6.6, and albumin of 3.4. LFTs are unremarkable. WBC 5.3, H and H 10 and 32, and platelets 98,000. IMPRESSION: 1. Altered mental status. 2. History of seizure disorder. 3. End-stage renal disease. 4. Torticollis. 5. Chronic debility. 6. Paroxysmal atrial fibrillation. 7. History of subdural hematoma. 8. Pulmonary hypertension. 9. Obstructive sleep apnea, does not wear CPAP and supposed to. 10.Coronary artery disease, mild, nonobstructive. PLAN: Admit for close neurologic observation. We will have Neurology see the patient. I am going to check an ABG, dialysis today, usual medicines as appropriate that does include his seizure medicines. Further orders and recommendations pending clinical course. TALAT JUAN J Nolasco / [id number] CC: Barrett Quintero M.D.
--- NOTE | ~2016-07-02 | DS ---
Discharge Summary [facility] [address] [place]. [address] NAME: GABRIELLE VOGT JR : 53 STATUS : DIS IN PAT#: [id number] AGE: 61 ADM/REG DATE : 07/02/16 MR#: [id number] REPORT SERV DATE: 07/18/16 DICTATED BY: FRANCES SHULTZ DATE: 07/17/16 REPORT STATUS : Draft TRANSCRIBED BY: LELO DATE: 07/17/16 Data Collection from hospitalization DISCHARGE DIAGNOSES: 1. Acute encephalopathy. 2. End-stage renal disease. 3. Chronic debility. 4. Left upper extremity swelling. 5. Obstructive sleep apnea. 6. Hypertension. 7. Former tobacco use. 8. Pulmonary hypertension. 9. Atrial fibrillation. 10.History of torticollis. 11.History of seizure disorder. 12.History of subdural hematoma. 13.Coronary artery disease. CONSULTATIONS: Lobito Rendon MD PROCEDURES PERFORMED: 1. Venous Doppler ultrasound of the left upper extremity on 07/07/2016. 2. Electroencephalogram on 07/03/2016. MEDICATIONS: Zyloprim 100 mg at bedtime; Norvasc 5 mg twice a day; Cordarone 100 mg at 9:00 a.m.; PhosLo 667 mg as instructed; Sensipar 30 mg on Sundays, Mondays, Wednesdays, and Fridays and Saturdays at 9:00 a.m.; Cardizem 120 mg at 9:00 a.m.; Keppra 500 mg twice a day; Theragran tablets one tablet daily; Zofran 4 mg twice a day; Trileptal 150 mg at bedtime; Protonix 40 mg at bedtime; Mirapex 0.75 mg at bedtime; Zoloft 50 mg daily; Renvela 800 mg with breakfast and supper; thiamine 100 mg at 9:00 a.m.; and Zonegran 300 mg at bedtime. CONDITION AT DISCHARGE: Stable. DISPOSITION: The patient was discharged to [facility] on a renal, mechanical soft diet with activities as instructed. HOSPITAL COURSE: This is a 60-year-old man who has an extensive past medical history including end-stage renal disease, seizure disorder, and also subdural hematoma last year who apparently arrived at the Dialysis Clinic on the day of this admission with an altered mental status. He was sent to the emergency room for evaluation. On evaluation here, the patient was very drowsy and hard to awaken. During my initial exam, he would not wake up, but did withdrawal from noxious stimuli, but further during the stay, he was now trying to sit up. While trying to sit him up on the dialysis machine, he was saying some words, but most did not make sense. A head CT was negative. His lytes were unremarkable for anything other than those that are consistent with his end-stage renal disease. He was admitted to the hospital at this time for further evaluation and treatment. Upon admission, his Dilantin level was 1.5. Ammonia level was 11. Chest x-ray revealed Discharge Summary [address] [place]. [address] NAME: GABRIELLE VOGT JR : 53 STATUS : DIS IN PAT#: [id number] AGE: 61 ADM/REG DATE : 07/02/16 MR#: [id number] REPORT SERV DATE: 07/18/16 DICTATED BY: FRANCES SHULTZ DATE: 07/17/16 REPORT STATUS : Draft TRANSCRIBED BY: LELO DATE: 07/17/16 some interstitial edema. Close neurologic observation was started. ABGs were going to be checked. He would undergo dialysis. His usual medications were continued as appropriate. He was seen in consultation by Dr. Lobito Rendon regarding possible seizure and encephalopathy. He was found to have a low Dilantin level. It was unclear whether or not he had been taking his seizure medication. He does have a history of persistent seizure disorder. He had been placed on Dilantin as well as Trileptal and Keppra. At his baseline, he ambulates with a rolling walker as well as a wheelchair and he does reside in an assisted living facility. CT scan of the brain had demonstrated generalized atrophy, but otherwise, no acute process. There was concern for possible seizure with postictal event versus hypotensive encephalopathy. At dialysis, staff member said apparently he was more alert, but he still had some confusion and disorientation as well as verbal perseverance. He had a low serum Dilantin level concerning for either an adequate dosage versus medication noncompliance. Serum Keppra level was going to be checked. Dilantin was going to be discontinued and the patient was going to be started on a trial with Zonegran. Keppra would be continued as well as Trileptal at this time. The patient would receive supplemental IV thiamine daily. EEG was requested. The following day, electroencephalogram was performed. This was considered within normal limits. A normal EEG study does not preclude the diagnosis of seizure disorder. The patient seemed to be more alert. No seizure activity was noted. Keppra and Trileptal were continued. Dilantin had been stopped. Zonegran was going to be given at bedtime. On 07/04/2016, he had no seizure-like activity. His encephalopathy had improved. Keppra, Trileptal, and Zonegran were continued. He was going to be transferred to the floor. He was evaluated by Physical Therapy. The next day, hemodialysis therapy was performed. He was in no acute distress. On 07/06/2016, I thought the patient did have a cough. He said he did have some coughing with meals over the past week. A swallow evaluation was requested. Speech/Language Pathology performed a bedside swallow evaluation. There were no overt signs or symptoms of aspiration. Aspiration precautions were in place. He continued to do well. Over the next couple of days, discharge planning was performed. A venous Doppler ultrasound of the left upper extremity was performed and was negative. On 07/08/2016, he was alert and cooperative. Discharge instructions were given. Due to his improved and stable condition, he was discharged to [facility] with the above-stated instructions. Information collected by: Kay Key I submit the above information as my discharge summary. TG/MODL Frances Shultz M.D. / [id number] CC: Thelma Sargent M.D. Discharge Summary [address] [address] NAME: GABRIELLE VOTG JR : 53 STATUS : DIS IN PAT#: [id number] AGE: 61 ADM/REG DATE : 07/02/16 MR#: [id number] REPORT SERV DATE: 07/18/16 DICTATED BY: FRANCES SHULTZ DATE: 07/17/16 REPORT STATUS : Draft TRANSCRIBED BY: MODL DATE: 07/17/16 Lobito Rendon MD [facility]
[~2016-07-02 15:10] MED LIST changes: +CENTRUM PO; +D100 PO; +KEPPRA500 PO; +PACERONE100 MG PO; +T PO; +ZOL50 PO; +[UNRECOGNIZED DRUG - OTHER] PO
[2016-07-02 15:41] LABS: ALLENS TEST Pos; BE (BASE EXCESS) 2.7 MEQ/L (0 +/- 2.5); CARBOXYHEMOGLOBIN 1.2 % (0-3); HCO3 (ACTUAL BICARBONATE) 26.1 MEQ/L (23-27); HEMOBLOGIN CONTENT 10.2 G/DL (14-18); INSTRUMENT SERIAL # 8083; METHEMOGLOBIN 0.3 % (0-3); O2 CONTENT 13.9 VOL% (18-24); PCO2 (CO2 TENSION) 36 MMHG (35-45); PO2 (O2 TENSION) 98 MMHG (79-93); SAMPLE Arterial; pH 7.48 (7.37-7.43)
[2016-07-03 05:49] LABS: BASOPHILS 0.2 %; BASOPHILS ABSOLUTE 0.01 10/3/uL (0.0-0.16); EOSINOPHILS 1.3 %; EOSINOPHILS ABSOLUTE 0.07 10/3/uL (0.0-0.53); HEMATOCRIT 31.7 % (40.0-51.0); HEMOGLOBIN 10.3 g/dL (13.6-17.8); IMMATURE GRANULOCYTES 0.2 %; IMMATURE GRANULOCYTES ABSOLUTE 0.01 10/3/uL (0.0-0.11); LYMPHOCYTES 18.1 %; MANUAL DIFF NO %; MEAN CORPUS HGB CONC 32.5 g/dL (32.0-36.0); MEAN CORPUSCULAR HEMOGLOB 32.3 pg (26.0-34.0); MEAN CORPUSCULAR VOLUME 99.4 fL (80-100); MEAN PLATELET VOLUME 10.5 fL (9.2-13.0); MONOCYTES 10.3 %; MONOCYTES ABSOLUTE 0.57 10/3/uL (0.21-1.20); NEUTROPHILS 69.9 %; NEUTROPHILS ABSOLUTE 3.87 10/3/uL (2.02-8.40); PLATELET COUNT 96 10/3/uL (150-400); RBC DISTRIBUTION WIDTH 15.3 % (12.0-16.0); RED CELL COUNT 3.19 10/6/uL (4.7-6.1); WHITE BLOOD CELLS 5.5 10/3/uL (4.5-10.5)
[2016-07-03 05:52] LABS: CHLORIDE, SERUM 109 MMOL/L (96-112); CO2 (CARBON DIOXIDE) 29 MMOL/L (24-34); GLUCOSE, SERUM 85 MG/DL (60-99); POTASSIUM, SERUM 3.8 MMOL/L (3.5-5.3); SODIUM, SERUM 146 MMOL/L (135-148)
[2016-07-03 05:58] LABS: BUN (BLOOD UREA NITROGEN) 18 MG/DL (6-23); CREATININE 3.99 MG/DL (0.70-1.30); DILANTIN (PHENYTOIN) < 0.4 MCG/ML (10.0-20.0); GFR AFRICAN AMERICAN 18 ML/MIN (>=60); GFR NON AFRICAN AMERICAN 15 ML/MIN (>=60); PHOSPHORUS, SERUM 2.9 MG/DL (2.5-4.5)
[2016-07-04 15:43] LABS: BASOPHILS 0.1 %; BASOPHILS ABSOLUTE 0.01 10/3/uL (0.0-0.16); EOSINOPHILS 1.7 %; EOSINOPHILS ABSOLUTE 0.12 10/3/uL (0.0-0.53); HEMATOCRIT 29.3 % (40.0-51.0); HEMOGLOBIN 9.7 g/dL (13.6-17.8); IMMATURE GRANULOCYTES 0.1 %; IMMATURE GRANULOCYTES ABSOLUTE 0.01 10/3/uL (0.0-0.11); LYMPHOCYTES 13.8 %; LYMPHOCYTES ABSOLUTE 0.96 10/3/uL (0.67-4.30); MEAN CORPUS HGB CONC 33.1 g/dL (32.0-36.0); MEAN CORPUSCULAR HEMOGLOB 32.9 pg (26.0-34.0); MEAN CORPUSCULAR VOLUME 99.3 fL (80-100); MEAN PLATELET VOLUME 10.3 fL (9.2-13.0); MONOCYTES 12.1 %; MONOCYTES ABSOLUTE 0.84 10/3/uL (0.21-1.20); NEUTROPHILS 72.2 %; NEUTROPHILS ABSOLUTE 5.01 10/3/uL (2.02-8.40); PLATELET COUNT 98 10/3/uL (150-400); RBC DISTRIBUTION WIDTH 15.4 % (12.0-16.0); RED CELL COUNT 2.95 10/6/uL (4.7-6.1)
[2016-07-04 15:45] LABS: MANUAL DIFF NO %
[2016-07-04 15:55] LABS: CHLORIDE, SERUM 110 MMOL/L (96-112); CO2 (CARBON DIOXIDE) 26 MMOL/L (24-34); GLUCOSE, SERUM 96 MG/DL (60-99); SODIUM, SERUM 144 MMOL/L (135-148)
[2016-07-04 15:56] LABS: BUN (BLOOD UREA NITROGEN) 29 MG/DL (6-23); GFR AFRICAN AMERICAN 11 ML/MIN (>=60); GFR NON AFRICAN AMERICAN 9 ML/MIN (>=60); PHOSPHORUS, SERUM 3.8 MG/DL (2.5-4.5); POTASSIUM, SERUM 5.1 MMOL/L (3.5-5.3)
[2016-07-05 06:48] LABS: BUN (BLOOD UREA NITROGEN) 15 MG/DL (6-23); CALCIUM, SERUM 8.3 MG/DL (8.5-10.4); CHLORIDE, SERUM 106 MMOL/L (96-112); CO2 (CARBON DIOXIDE) 32 MMOL/L (24-34); CREATININE 3.98 MG/DL (0.70-1.30); GFR AFRICAN AMERICAN 18 ML/MIN (>=60); GFR NON AFRICAN AMERICAN 15 ML/MIN (>=60); GLUCOSE, SERUM 88 MG/DL (60-99); PHOSPHORUS, SERUM 3.2 MG/DL (2.5-4.5); SODIUM, SERUM 143 MMOL/L (135-148)
[2016-07-05 06:56] LABS: BASOPHILS 0.4 %; BASOPHILS ABSOLUTE 0.02 10/3/uL (0.0-0.16); EOSINOPHILS 2.3 %; EOSINOPHILS ABSOLUTE 0.13 10/3/uL (0.0-0.53); HEMATOCRIT 32.1 % (40.0-51.0); HEMOGLOBIN 10.1 g/dL (13.6-17.8); IMMATURE GRANULOCYTES 0.2 %; IMMATURE GRANULOCYTES ABSOLUTE 0.01 10/3/uL (0.0-0.11); LYMPHOCYTES 26.2 %; LYMPHOCYTES ABSOLUTE 1.47 10/3/uL (0.67-4.30); MEAN CORPUS HGB CONC 31.5 g/dL (32.0-36.0); MEAN CORPUSCULAR HEMOGLOB 32.3 pg (26.0-34.0); MEAN PLATELET VOLUME 10.4 fL (9.2-13.0); MONOCYTES 9.8 %; MONOCYTES ABSOLUTE 0.55 10/3/uL (0.21-1.20); NEUTROPHILS 61.1 %; NEUTROPHILS ABSOLUTE 3.44 10/3/uL (2.02-8.40); PLATELET COUNT 89 10/3/uL (150-400); RBC DISTRIBUTION WIDTH 15.3 % (12.0-16.0); RED CELL COUNT 3.13 10/6/uL (4.7-6.1); WHITE BLOOD CELLS 5.6 10/3/uL (4.5-10.5)
[2016-07-05 07:02] LABS: MANUAL DIFF NO %; MEAN CORPUSCULAR VOLUME 102.6 fL (80-100)
[2016-07-07 07:49] LABS: BASOPHILS 0.4 %; BASOPHILS ABSOLUTE 0.02 10/3/uL (0.0-0.16); EOSINOPHILS 1.5 %; EOSINOPHILS ABSOLUTE 0.08 10/3/uL (0.0-0.53); HEMOGLOBIN 9.1 g/dL (13.6-17.8); IMMATURE GRANULOCYTES 0.2 %; IMMATURE GRANULOCYTES ABSOLUTE 0.01 10/3/uL (0.0-0.11); LYMPHOCYTES 23.4 %; LYMPHOCYTES ABSOLUTE 1.27 10/3/uL (0.67-4.30); MEAN CORPUS HGB CONC 32.2 g/dL (32.0-36.0); MEAN CORPUSCULAR HEMOGLOB 32.7 pg (26.0-34.0); MEAN CORPUSCULAR VOLUME 101.8 fL (80-100); MEAN PLATELET VOLUME 10.4 fL (9.2-13.0); MONOCYTES 8.7 %; MONOCYTES ABSOLUTE 0.47 10/3/uL (0.21-1.20); NEUTROPHILS 65.8 %; NEUTROPHILS ABSOLUTE 3.57 10/3/uL (2.02-8.40); PLATELET COUNT 65 10/3/uL (150-400); RED CELL COUNT 2.78 10/6/uL (4.7-6.1); WHITE BLOOD CELLS 5.4 10/3/uL (4.5-10.5)
[2016-07-07 07:50] LABS: HEMATOCRIT 28.3 % (40.0-51.0); MANUAL DIFF NO %
[2016-07-07 07:58] LABS: ALBUMIN 2.9 G/DL (3.5-5.0); CALCIUM, SERUM 8.4 MG/DL (8.5-10.4); CHLORIDE, SERUM 106 MMOL/L (96-112); CO2 (CARBON DIOXIDE) 31 MMOL/L (24-34); GLUCOSE, SERUM 87 MG/DL (60-99); POTASSIUM, SERUM 4.5 MMOL/L (3.5-5.3); SODIUM, SERUM 142 MMOL/L (135-148)
[2016-07-07 08:02] LABS: BUN (BLOOD UREA NITROGEN) 49 MG/DL (6-23); CREATININE 7.41 MG/DL (0.70-1.30); GFR AFRICAN AMERICAN 8 ML/MIN (>=60); GFR NON AFRICAN AMERICAN 7 ML/MIN (>=60); PHOSPHORUS, SERUM 4.8 MG/DL (2.5-4.5)
[2016-07-07 08:14] LABS: MACROCYTES 1+ (5-10/OIF) (0-5/OIF); PLATELET ESTIMATE DEC (ADEQUATE)
== END 2016-07-08 17:54 | DRG 70 ==
LOC: 2SO 15:10 → CCU 16:42 → 2SO 07-04 19:00
PROVIDERS: Internal Medicine Nephrology; Nurse Practitioner
DX: G93.40 Encephalopathy, unspecified (principal); N18.6 End stage renal disease; N17.9 Acute kidney failure, unspecified; I27.2 Other secondary pulmonary hypertension; I48.0 Paroxysmal atrial fibrillation; I50.9 Heart failure, unspecified; I13.0 Hypertensive heart and chronic kidney disease with heart failure and stage 1 through stage 4 chronic kidney disease, or unspecified chronic kidney disease; R40.0 Somnolence; D64.9 Anemia, unspecified; F09 Unspecified mental disorder due to known physiological condition; G40.909 Epilepsy, unspecified, not intractable, without status epilepticus; G47.33 Obstructive sleep apnea (adult) (pediatric); I25.10 Atherosclerotic heart disease of native coronary artery without angina pectoris; M43.6 Torticollis; I25.5 Ischemic cardiomyopathy; K21.9 Gastro-esophageal reflux disease without esophagitis; R53.81 Other malaise; I25.2 Old myocardial infarction; Z99.2 Dependence on renal dialysis; Z91.19 Patient's noncompliance with other medical treatment and regimen; Z91.041 Radiographic dye allergy status
CPT/HCPCS: 36600; 70450; 71010; 80048; 80053; 80069; 80177; 80185; 82140; 82805; 83605; 83735; 83880; 84100; 85025; 87040; 87641; 92610-GN; 93005; 93971; 95819; 97162-GP; 99285; A9270-GY; G0257; G8978-CL-GP; G8979-CL-GP; G8980-CL-GP; G8996-CJ-GN; G8997-CJ-GN; G8998-CJ-GN; J0360; J3010; J3411